=== PATIENT | female | born 2000 | race Caucasian/White ===

== ENCOUNTER 2019-08-26 07:42 | Inpatient (IN) ==
[2019-08-26] MEDS ORDERED: ONDANSETRON INJ 2 MG/ML 2 ML VIAL IV STA (08:13)
[2019-08-26] MEDS ORDERED: SODIUM CHLORIDE 0.9% 1000ML 2,000 ML IV SCH (08:15)
[2019-08-26 09:03] LABS: Hematocrit (blood only) 42.2 % (37-47); Hemoglobin 13.5 g/dL (12.0-16.0); Mean Corpuscular Volume 90.8 fL (80-100); Mean Platelet Volume 9.2 fL (7.4-10.4); Platelet Count 498 K/uL (130-400); RDW Coefficient of Variation 14.4 % (11.5-14.5); RDW Standard Deviation 47.4 fL (36.4-46.3); Red Blood Count 4.65 M/uL (4.2-5.4)
[2019-08-26 09:06] LABS: Base Excess ABG -19.8 mEq/L (-9-1.8); HCO3 ABG 8 mmol/L (19-24); PCO2 ABG 25 mmHg (35-46); PO2 ABG 52 mmHg (80-95)
[2019-08-26 09:10] LABS: Allen Test Pos (Pos); pH ABG 7.12 (7.35-7.45)
[2019-08-26] MEDS ORDERED: INSULIN PROTOCOL GOAL RANGE ONE (09:13)
[2019-08-26] MEDS ORDERED: SEVERE STRESS LEVEL ONE (09:13)
[2019-08-26] MEDS ORDERED: SODIUM CHLORIDE 0.9% 1000ML 1,000 ML IV ONE (09:13)
[2019-08-26 09:19] LABS: D Dimer 410 ug/L FEU (0-500)
[2019-08-26 09:32] LABS: Basophils # (auto) 0.08 K/uL (0-0.2); Basophils % (auto) 0.3 %; Eosinophils # (auto) 0.02 K/uL (0-0.5); Eosinophils % (auto) 0.1 %; Immature Granulocytes # (auto) 1.26 K/uL (0.00-0.02); Immature Granulocytes % (auto) 4.4 %; Lymphocytes # (auto) 2.31 K/uL (1.2-3.4); Lymphocytes % (auto) 8.1 %; Monocytes % (auto) 8.8 %; Neutrophils # (auto) 22.33 K/uL (1.4-6.5); Neutrophils % (auto) 78.3 %
[2019-08-26 09:33] LABS: Albumin Globulin Ratio 0.9 (0.9-2); Albumin Level 3.8 gm/dl (3.4-5.0); BUN Creatinine Ratio 11.8 (10-20); Bilirubin,Total 0.3 mg/dl (0.2-1); Calcium 8.3 mg/dl (8.5-10.1); Creatinine Clr Calc Pharmacy 49.6 ml/min; Est GFR (African American) 54.4; Globulin 4.3 gm/dl (2.5-4.0); Potassium 4.2 mmol/L (3.5-5.1); Total Protein 8.1 gm/dl (6.4-8.2)
--- NOTE | 2019-08-26 10:23 | History & Physical Report ---
Date of Service August 26, 2019 Assessment & Plan (1) DKA (diabetic ketoacidoses): IVF, DKA protocol A1c pending Holding home insulin NPO for now (2) Flank pain: UA pending t/c US vs CTAP depending on US results Renal stone vs pyelo vs ruptured ovarian cyst Ddimer neg, VSS (3) KRYSTIN (acute kidney injury): Related to DKA Monitor (4) Leukocytosis: Likely related to above Monitor (5) Diabetes type 1, controlled: Holding home meds (6) DVT prophylaxis: Ambulation History of Present Illness Primary Care Provider: NO PCP 19 y/o F c/o n/v. Pt states she was out in the sun all day yesterday, swimming, etc. She ended up sun burned and "dehydrated". She states that she felt fine otherwise. She is visiting her boyfriend and they are staying with another couple at [place]. She states that they all went to dinner last night. She ate the same thing as the other girlfriend. The other girl started to have n/v first, but then pt developed the same an hour or so later. The other girl stated that she felt like she had food poisoning and felt better shortly after, however pt continued to have n/v throughout the night into early this AM. She could not keep down any liquids, so she eventually came to the ED for concerns of dehydration. Pt is a DM-I. She did take a bolus of her home insulin [employer]. Pt states she is having R sided "kidney" pain. She states she has hx of kidney stones and thought this might be similar. She has also had ruptured ovarian cysts, but those generally are painful for her in the anterior abd. She states she just had a ruptured cyst in the middle of July, after switching from Nexplanon to OCP due to not being able to have her Nexplanon switched due to COVID restrictions. She did not seek care for this most recent ruptured cyst because she has had them before and this felt the same. She states she still has some L sided lower back pain related to this. She has no increased pain to her back with urination. She had decreased urination yesterday, which she relates to "sun poisoning and being dehydrated". She feels increased pain with deep breaths, but is not short of breath. No chest pain. She states her ruptured cysts occurred prior with OCP use as well. Pt states she feels better s/p IVF and zofran. Still awaiting insulin drip in the ED. Allergies Allergy/AdvReac Type Severity Reaction Status Date / Time No Known Allergies Allergy Unverified 08/26/19 08:14 Home Medications Home Medications Medication Instructions Recorded Confirmed Type ibuprofen 200 mg PO Q6H PRN 08/26/19 08/26/19 History insulin aspart U-100 [Novolog 10 unit SUBCUT TID 08/26/19 08/26/19 History U-100 Insulin aspart] insulin glargine [Lantus U-100 25 unit SUBCUT PM 08/26/19 08/26/19 History Insulin] norethindrone-e.estradiol-iron 1 tab PO PM 08/26/19 08/26/19 History [03/14 (28)] Past Med/Surg History Family History (Updated 08/26/19 @ 10:20 by Susan Moon DO) Denies family history of Clotting disorder Myocardial infarction Stroke Social History Preferred Language: Spanish Communication Ability: Effective [place] Hand Required: No Beliefs That Will Affect Care: None Current Living Situation: Parent Other Information That Helps Us Care for You: No Feels Safe at Home: Yes Safety Concerns: Feels Safe At This Time Smoking Status: Never smoker Hx Alcohol Use: No Hx Substance Use: No Review of Systems Review of Systems: Pertinent positives and negatives reviewed in HPI--all others negative Physical Exam Constitutional: WD/WN, vitals as above Eyes: normal visual sanches by confrontation and + anicteric sclerae Neck: normal visual inspection and trachea midline Respiratory: normal respiratory effort, lungs clear to auscultation Cardiovascular: Rate/Rhythm: regular rate and regular rhythm Gastrointestinal (Abdomen): Inspection/Auscultation: abdomen not distended Percussion/Palpation: abdomen soft; abdomen nontender mild R sided CVA TTP Musculoskeletal: Head/Neck/Chest: normocephalic and head atraumatic negative for edema, peripheral pulses intact Skin: no rashes, warm and dry Neurologic: awake; not confused Speech / Cognition: normal speech Psychiatric: A+Ox3, euthymic affect Results & Data Results & Data ([facility]) Vital Signs (Past 12 Hours) Vital Signs Temp Pulse Pulse Resp BP BP Pulse Ox 08/26/19 08:48 122 H 22 123/79 08/26/19 07:45 36.5 C 136 H 28 H 139/95 94 PG Care Time/CCT Total # of Minutes Spent Total Time Spent with Patient: Total time spent is greater than 50% in coordination of care (as documented) at patient's floor/unit and/or counseling patient: Coding Level of Care Code 69276 Initial Inpt Care Lvl 3 Diagnoses DKA (diabetic ketoacidoses) E11.10 Flank pain R10.9 KRYSTIN (acute kidney injury) N17.9 Leukocytosis D72.829 Diabetes type 1, controlled E10.9 DVT prophylaxis Z29.9
[2019-08-26] MEDS: INSULIN REGULAR 250 UNITS in SODIUM CHLORIDE 0.9% 247.5 ML IV SCH ×2 (10:28→10:39)
[2019-08-26] MEDS ORDERED: NovoLIN-R BOLUS FROM BAG IV ONE ×2 (10:30→10:45)
[2019-08-26] MEDS ORDERED: GLUCAGON FOR INJ 1 MG VIAL IM PRN (10:45)
[2019-08-26] MEDS ORDERED: GLUCOSE 10 TABS/TUBE PO PRN ×2 (10:45→13:34)
[2019-08-26] MEDS ORDERED: CARBOHYDRATES FOR HYPOGLYCEMIA PO PRN ×2 (10:45→13:34)
[2019-08-26] MEDS ORDERED: DEXTROSE 50% 50 ML SYRINGE IV PRN ×2 (10:45→13:34)
[2019-08-26] MEDS ORDERED: GLUCOSE 40% GEL 15 GM TUBE PO PRN ×2 (10:45→13:34)
[2019-08-26 10:54] LABS: Appearance Urine Cloudy (Clear); Bacteria Urine Automated 1+ (Negative); Bilirubin Urine Negative (Negative); Blood Urine 3+ (Negative); Color Urine Yellow; Epithelial Cell Urine Auto >30 /lpf (0-5); Glucose Urine UA 2+ (Negative); Ketones Urine 4+ (Negative); Leukocyte Esterase Urine Negative (Negative); Nitrite Urine Negative (Negative); Protein Urine 2+ (Negative); RBC Urine Automated >30 /hpf (0-4); Specific Gravity Urine 1.021 (1.000-1.030); Urobilinogen Urine Negative (Negative)
[2019-08-26] MEDS ORDERED: DEXTROSE 50% 50 ML SYRINGE IV ONE (11:31)
[2019-08-26] MEDS ORDERED: IOVERSOL 100ml IV PRN (12:37)
[2019-08-26] MEDS ORDERED: INSULIN REGULAR 250 UNITS in SODIUM CHLORIDE 0.9% 247.5 ML IV SCH (12:56)
[2019-08-26] MEDS ORDERED: ACETAMINOPHEN 325 MG TAB PO PRN (12:56)
[2019-08-26] MEDS ORDERED: INSULIN ASPART 100 UNITS/ML 3 ML PEN SC SCH (12:56)
[2019-08-26] MEDS ORDERED: MAGNESIUM HYDROXIDE SUSP 30 ML UDC PO PRN (12:56)
[2019-08-26] MEDS ORDERED: DKA GOAL RANGE 150-250 mg/dl ONE (12:56)
--- NOTE | 2019-08-26 12:59 | CT Scan Report ---
CT OF THE ABDOMEN AND PELVIS WITH CONTRAST CLINICAL HISTORY: DKA, abdominal pain. COMPARISON STUDY: None. TECHNIQUE: Following IV administration of 93 mL of Optiray-320, axial images of the abdomen and pelvi s were obtained from the lung bases to the proximal femurs. Images were reviewed in the axial, sagitt al, and coronal planes. IV contrast was administered without complication. Automated exposure contro l was utilized for the study. A dose lowering technique was utilized adhering to the principles of A PHILIP. CT DOSE: 316.45 mGycm FINDINGS: Imaged portions of the lower chest demonstrate a small amount of pneumomediastinum along th e anterior aspect of the distal esophagus. There is no pneumoperitoneum. No mediastinal fluid is iden tified within visualized portions of the mediastinum. No pleural effusion is present. Note is made of moderate hepatomegaly and fatty infiltration of the liver. No hepatic lesions are present. The splee n, adrenal glands and pancreas are unremarkable. There is no peripancreatic or pericholecystic infilt ration. Hyperdense material within the bilateral collecting systems is noted. This probably reflects extruded contrast. Small calculi could appear similar. There are no ureteral catheter. There is no hy dronephrosis. There is no evidence for acute appendicitis. The caliber and wall thickness of small an d large bowel are normal. There is no ascites. There is no abscess within the abdomen or pelvis to th e ovaries are not enlarged. Visualized skeletal structures are unremarkable. IMPRESSION: 1. Small amount of pneumomediastinum along the distal esophagus. No mediastinal fluid or pleural effu danielle. Statistically, this is due to alveolar rupture. However, a chest CT with oral contrast could be obtained to exclude the possibility of esophageal tear. 2. No acute findings within the abdomen or pelvis. 3. Moderate hepatomegaly and fatty infiltration of the liver. ACT 112: Negative or not required by law. Electronically signed by: Hugo Velázquez M.D. 08/26/2019 12:57 PM
[2019-08-26] MEDS ORDERED: PENDING D5 1/2NS+20mEq KCL IVF SCH (13:00)
[2019-08-26] MEDS ORDERED: PENDING 1/2NSS+20mEq KCL IVF SCH (13:00)
[2019-08-26] MEDS ORDERED: PHARMACY GLYCEMIC MGMT CONSULT PRN (13:02)
[2019-08-26] MEDS ORDERED: GLUCAGON FOR INJ 1 MG VIAL SQ PRN (13:34)
[2019-08-26] MEDS: SODIUM CHLORIDE 0.45 % 1,000 ML IV SCH ×2 (13:42→21:19)
[2019-08-26] MEDS: INSULIN ASPART 100 UNITS/ML 3 ML PEN SC SCH ×3 (13:55→21:20)
[2019-08-26 14:26] LABS: Estimated Average Glucose 243 mg/dl; Hemoglobin A1C 10.1 % (4.5-5.6)
[2019-08-26 15:32] LABS: BUN Creatinine Ratio 11.1 (10-20); Creatinine Clr Calc Pharmacy 72.1 ml/min; Est GFR (African American) 85.6; Est GFR (Non-African American) 73.8; Magnesium 1.9 mg/dl (1.8-2.4); Phosphorus 2.7 mg/dl (2.5-4.9); Potassium 4.6 mmol/L (3.5-5.1)
[2019-08-26] MEDS ORDERED: INSULIN HUMAN REGULAR PER UNIT 10 UNITS in SYRINGE 9.9 ML IV ONE (16:00)
--- NOTE | 2019-08-26 16:17 | Electrocardiogram Report ---
Test Reason : Blood Pressure : / mmHG Vent. Rate : 140 BPM Atrial Rate : 140 BPM P-R Int : 112 ms QRS Dur : 068 ms QT Int : 358 ms P-R-T Axes : 085 089 051 degrees QTc Int : 546 ms Poor data quality, interpretation may be adversely affected Sinus tachycardia Nonspecific T wave abnormality Abnormal ECG No previous ECGs available Confirmed by Cisco Hardin ([id number]) on 08/26/2019 4:17:15 PM Referred By: REFERRED SELF Confirmed By:Cisco Hardin
[2019-08-26 16:24] LABS: Beta-Hydroxybutyrate 62.14 mg/dl (0.2-2.81)
--- NOTE | 2019-08-26 16:59 | Emergency Department Note ---
History of Present Illness General Chief complaint: Vomiting Time Seen by Provider: 08/26/19 08:00 Source: patient and RN notes reviewed Mode of arrival: EMS Limitations: no limitations History of Present Illness Provider complaint: Vomiting, back pain and dehydration. Maximum Pain Intensity: 4 This patient is a 19-year-old female who presents to the emergency department with complaints of right mid back pain, vomiting and dehydration. Patient states she has an insulin-dependent diabetic and began vomiting yesterday. She states she is visiting from out of the area and had dinner with several friends. 1 other friend ordered the same dinner and had some vomiting last evening as well. Patient states she vomited 8-10 times last night but denies any blood in the vomit. She did begin to vomit bile. Patient states her blood sugar was approximately 400 prior to calling the ambulance and gave herself a bolus of insulin. Patient denies any recent fevers, chills, chest pain or shortness of breath. She denies any urinary symptoms. She denies any history of pulmonary embolus but does state she was taken off of the Nexplanon and started a control pill last month. Home Medications Home Medications Medication Instructions Recorded Confirmed Type ibuprofen 200 mg PO Q6H PRN 08/26/19 08/26/19 History insulin aspart U-100 [Novolog 10 unit SUBCUT TID 08/26/19 08/26/19 History U-100 Insulin aspart] insulin glargine [Lantus U-100 25 unit SUBCUT PM 08/26/19 08/26/19 History Insulin] norethindrone-e.estradiol-iron 1 tab PO PM 08/26/19 08/26/19 History [03/14 (28)] Allergies Allergy/AdvReac Type Severity Reaction Status Date / Time No Known Allergies Allergy Unverified 08/26/19 08:14 Past Med/Surg History Family History Denies family history of Clotting disorder Myocardial infarction Stroke Social History Preferred Language: Kazakh Communication Ability: Effective Machine Sole Leveler Required: No Beliefs That Will Affect Care: None Current Living Situation: Parent Other Information That Helps Us Care for You: No Feels Safe at Home: Yes Safety Concerns: Feels Safe At This Time Smoking Status: Never smoker Hx Alcohol Use: No Hx Substance Use: No Review of Systems See HPI for pertinent positives & negatives. and A total of 10 systems reviewed and were otherwise negative Physical Exam Vital Signs Vital Signs - 24 hr 08/26/19 07:45 08/26/19 08:48 08/26/19 10:30 Temperature 36.5 C Temperature Source Oral Pulse Rate 136 H Pulse Rate [Apical] 122 H 105 H Respiratory Rate 28 H 22 16 Blood Pressure 139/95 Blood Pressure [Right Arm] 123/79 126/78 Blood Pressure Mean 109 Blood Pressure Mean [Right Arm] 93 94 Pulse Oximetry 94 Oxygen Delivery Method Room Air Sepsis Recent Fever Within 48 Hours No Sepsis New/Unexplained Change in Mental Status No Sepsis Action Taken by Nursing No Action Required Vital signs reviewed. General: Acutely ill-appearing 19-year-old female, tachycardic but in no distress. HEENT: No scleral icterus or conjunctival injection, dry mucous membranes. Cardiovascular: Tachycardic but regular Pulmonary: Clear to auscultation bilaterally, tachypneic. Abdomen: Soft, generally nontender, nondistended, positive bowel sounds. Musculoskeletal: Atraumatic, no peripheral edema. Mild right CVA tenderness Neurologic: Patient awake alert and oriented x 3 Skin: Warm, dry, no rash Course Administered Medications Acetaminophen (Tylenol) 650 mg PO Q4H PRN PRN Reason: Pain or Fever Stop: 09/25/19 12:55 Last Admin: 08/26/19 15:46 Dose: 650 mg Documented by: [id number] Sodium Chloride (1/2 Nss) 1,000 mls @ 120 mls/hr IV .Q8H20M [facility] Stop: 09/25/19 12:55 Last Admin: 08/26/19 13:42 Dose: 120 mls/hr Documented by: [id number] Insulin Aspart (Novolog Flexpen) 0 units SC ACHS [facility] Stop: 09/25/19 16:29 Last Admin: 08/26/19 13:55 Dose: 10 units Documented by: [id number] Cosigned by: [id number] Ioversol (Optiray 320 100ml) 93 ml IV ONCE PRN PRN Reason: Interaction Checking Stop: 08/30/19 12:36 Last Admin: 08/26/19 12:38 Dose: 93 ml Documented by: [id number] Discontinued Medications Dextrose (Dextrose 50%) 25 ml IV NOW ONE Stop: 08/26/19 11:32 Last Admin: 08/26/19 11:34 Dose: 25 ml Documented by: [id number] Sodium Chloride (Nss 1000ml) 2,000 mls @ 999 mls/hr IV .Q2H1M [facility] Stop: 08/26/19 10:15 Last Infusion: 08/26/19 10:45 Dose: 0 mls/hr Documented by: [id number] Admin: 08/26/19 08:44 Dose: 999 mls/hr Documented by: [id number] Sodium Chloride (Nss 1000ml) 1,000 mls @ 999 mls/hr IV .Q1H1M ONE Stop: 08/26/19 10:13 Last Infusion: 08/26/19 10:36 Dose: 0 mls/hr Documented by: [id number] Infusion: 08/26/19 10:35 Dose: 0 mls/hr Documented by: [id number] Admin: 08/26/19 09:35 Dose: 999 mls/hr Documented by: [id number] Insulin Human Regular 250 (units/ Sodium Chloride) 250 mls @ 5.5 mls/hr IV .Q24H [facility]; Protocol Stop: 09/25/19 09:14 Last Admin: 08/26/19 10:39 Dose: 1.4 units/hr, 1.4 mls/hr Documented by: [id number] Cosigned by: [id number] Titration: 08/26/19 10:39 Dose: 1.4 units/hr, 1.4 mls/hr Documented by: [id number] Cosigned by: [id number] Admin: 08/26/19 10:28 Dose: 1.4 units/hr, 1.4 mls/hr Documented by: [id number] Cosigned by: [id number] Insulin Human Regular 10 units (/ Syringe) 10 mls @ 5 mls/min IV 1600 ONE Stop: 08/26/19 16:01 Last Admin: 08/26/19 16:21 Dose: 5 mls/min Documented by: [id number] Cosigned by: [id number] Insulin Human Regular (Novolin R Bolus From Bag) 5.5 units IV ONE ONE Stop: 08/26/19 10:46 Last Admin: 08/26/19 10:50 Dose: 5.5 units Documented by: [id number] Cosigned by: [id number] Miscellaneous (Insulin Protocol Goal Range) 1 ea N/A ONE ONE Stop: 08/26/19 09:14 Last Admin: 08/26/19 10:30 Dose: Not Given Documented by: [id number] Ondansetron HCl (Zofran) 4 mg IV NOW STA Stop: 08/26/19 08:14 Last Admin: 08/26/19 08:48 Dose: 4 mg Documented by: [id number] Critical Care Time Critical Care Time: Yes (42) I have personally spent greater than 42 minutes of critical care time in the direct management of this patient. This includes bedside care, interpretation of diagnostic studies, and testing, discussion with consultants, patient, and family members, and other required patient management activities. This 42 minutes is in excess of all separately billable procedures. Medical Decision Making Differential Diagnosis Differential diagnosis: Etiologies such as gastroenteritis, DKA, food borne illness, infections, appendicitis, diverticulitis, inflammatory bowel disease, obstruction, GI bleed, biliary pathology, cardiac process, intracranial process, as well as others were entertained. Home Medications Current Medication List: was personally reviewed by me Laboratory Data Attestation: I reviewed the patient's lab results. Result diagrams: 08/26/19 08:44 08/26/19 14:41 Lab Results 08/26/19 08/26/19 08/26/19 Range/Units 08:44 08:44 08:44 WBC 28.50 H (4.8-10.8) K/uL RBC 4.65 (4.2-5.4) M/uL Hgb 13.5 (12.0-16.0) g/dL Hct 42.2 (37-47) % MCV 90.8 (80-100) fL MCH 29.0 (25-34) pg MCHC 32.0 (32-36) g/dL RDW Std Deviation 47.4 H (36.4-46.3) fL RDW Coeff of Jessie 14.4 (11.5-14.5) % Plt Count 498 H (130-400) K/uL MPV 9.2 (7.4-10.4) fL Immature Gran % (Auto) 4.4 % Neut % (Auto) 78.3 % Lymph % (Auto) 8.1 % [place] % (Auto) 8.8 % Eos % (Auto) 0.1 % Baso % (Auto) 0.3 % Neut # (Auto) 22.33 H (1.4-6.5) K/uL Lymph # (Auto) 2.31 (1.2-3.4) K/uL [place] # (Auto) 2.50 H (0.11-0.59) K/uL Eos # (Auto) 0.02 (0-0.5) K/uL Baso # (Auto) 0.08 (0-0.2) K/uL Immature Gran # (Auto) 1.26 H (0.00-0.02) K/uL D-Dimer 410 (0-500) ug/L FEU ABG pH (7.35-7.45) ABG pCO2 (35-46) mmHg ABG pO2 (80-95) mmHg ABG HCO3 (19-24) mmol/L ABG O2 Saturation (90-95) % ABG Base Excess (-9-1.8) mEq/L Jd Test (Pos) Barometric Pressure mm/Hg Oxygen Given Sodium 138 (136-145) mmol/L Potassium 4.2 (3.5-5.1) mmol/L Chloride 109 H (98-107) mmol/L Carbon Dioxide 8 L* (21-32) mmol/L Anion Gap 21.0 H (3-11) BUN 18 (7-18) mg/dl Creatinine 1.57 H (0.6-1.2) mg/dl Est Cr Clr Drug Dosing 49.6 ml/min Est GFR ( Amer) 54.4 Est GFR (Non-Af Amer) 47.0 BUN/Creatinine Ratio 11.8 (10-20) Glucose 271 H (70-99) mg/dl POC Glucose (70-99) mg/dl Estimat Average Glucose mg/dl Hemoglobin A1c (4.5-5.6) % Calcium 8.3 L (8.5-10.1) mg/dl Total Bilirubin 0.3 (0.2-1) mg/dl AST 252 H (15-37) U/L ALT 224 H (12-78) U/L Alkaline Phosphatase 202 H (45-117) U/L Total Protein 8.1 (6.4-8.2) gm/dl Albumin 3.8 (3.4-5.0) gm/dl Globulin 4.3 H (2.5-4.0) gm/dl Albumin/Globulin Ratio 0.9 (0.9-2) Lipase 74 (73-393) U/L 08/26/19 08/26/19 08/26/19 Range/Units 08:44 08:44 09:33 WBC (4.8-10.8) K/uL RBC (4.2-5.4) M/uL Hgb (12.0-16.0) g/dL Hct (37-47) % MCV (80-100) fL MCH (25-34) pg MCHC (32-36) g/dL RDW Std Deviation (36.4-46.3) fL RDW Coeff of Jessie (11.5-14.5) % Plt Count (130-400) K/uL MPV (7.4-10.4) fL Immature Gran % (Auto) % Neut % (Auto) % Lymph % (Auto) % [place] % (Auto) % Eos % (Auto) % Baso % (Auto) % Neut # (Auto) (1.4-6.5) K/uL Lymph # (Auto) (1.2-3.4) K/uL [place] # (Auto) (0.11-0.59) K/uL Eos # (Auto) (0-0.5) K/uL Baso # (Auto) (0-0.2) K/uL Immature Gran # (Auto) (0.00-0.02) K/uL D-Dimer (0-500) ug/L FEU ABG pH 7.12 L* (7.35-7.45) ABG pCO2 25 L (35-46) mmHg ABG pO2 52 L (80-95) mmHg ABG HCO3 8 L (19-24) mmol/L ABG O2 Saturation 79.0 L (90-95) % ABG Base Excess -19.8 L (-9-1.8) mEq/L Jd Test Pos (Pos) Barometric Pressure 730.9 mm/Hg Oxygen Given Room Air Sodium (136-145) mmol/L Potassium (3.5-5.1) mmol/L Chloride (98-107) mmol/L Carbon Dioxide (21-32) mmol/L Anion Gap (3-11) BUN (7-18) mg/dl Creatinine (0.6-1.2) mg/dl Est Cr Clr Drug Dosing ml/min Est GFR ( Amer) Est GFR (Non-Af Amer) BUN/Creatinine Ratio (10-20) Glucose (70-99) mg/dl POC Glucose 216 H (70-99) mg/dl Estimat Average Glucose 243 mg/dl Hemoglobin A1c 10.1 H (4.5-5.6) % Calcium (8.5-10.1) mg/dl Total Bilirubin (0.2-1) mg/dl AST (15-37) U/L ALT (12-78) U/L Alkaline Phosphatase (45-117) U/L Total Protein (6.4-8.2) gm/dl Albumin (3.4-5.0) gm/dl Globulin (2.5-4.0) gm/dl Albumin/Globulin Ratio (0.9-2) Lipase (73-393) U/L 08/26/19 Range/Units 11:01 WBC (4.8-10.8) K/uL RBC (4.2-5.4) M/uL Hgb (12.0-16.0) g/dL Hct (37-47) % MCV (80-100) fL MCH (25-34) pg MCHC (32-36) g/dL RDW Std Deviation (36.4-46.3) fL RDW Coeff of Jessie (11.5-14.5) % Plt Count (130-400) K/uL MPV (7.4-10.4) fL Immature Gran % (Auto) % Neut % (Auto) % Lymph % (Auto) % [place] % (Auto) % Eos % (Auto) % Baso % (Auto) % Neut # (Auto) (1.4-6.5) K/uL Lymph # (Auto) (1.2-3.4) K/uL [place] # (Auto) (0.11-0.59) K/uL Eos # (Auto) (0-0.5) K/uL Baso # (Auto) (0-0.2) K/uL Immature Gran # (Auto) (0.00-0.02) K/uL D-Dimer (0-500) ug/L FEU ABG pH (7.35-7.45) ABG pCO2 (35-46) mmHg ABG pO2 (80-95) mmHg ABG HCO3 (19-24) mmol/L ABG O2 Saturation (90-95) % ABG Base Excess (-9-1.8) mEq/L Jd Test (Pos) Barometric Pressure mm/Hg Oxygen Given Sodium (136-145) mmol/L Potassium (3.5-5.1) mmol/L Chloride (98-107) mmol/L Carbon Dioxide (21-32) mmol/L Anion Gap (3-11) BUN (7-18) mg/dl Creatinine (0.6-1.2) mg/dl Est Cr Clr Drug Dosing ml/min Est GFR ( Amer) Est GFR (Non-Af Amer) BUN/Creatinine Ratio (10-20) Glucose (70-99) mg/dl POC Glucose 101 H (70-99) mg/dl Estimat Average Glucose mg/dl Hemoglobin A1c (4.5-5.6) % Calcium (8.5-10.1) mg/dl Total Bilirubin (0.2-1) mg/dl AST (15-37) U/L ALT (12-78) U/L Alkaline Phosphatase (45-117) U/L Total Protein (6.4-8.2) gm/dl Albumin (3.4-5.0) gm/dl Globulin (2.5-4.0) gm/dl Albumin/Globulin Ratio (0.9-2) Lipase (73-393) U/L Imaging Data Attestation: I personally reviewed and interpreted this imaging study as follows: Radiologist's Impression: CT OF THE ABDOMEN AND PELVIS WITH CONTRAST CLINICAL HISTORY: DKA, abdominal pain. COMPARISON STUDY: None. TECHNIQUE: Following IV administration of 93 mL of Optiray-320, axial images of the abdomen and pelvis were obtained from the lung bases to the proximal femurs. Images were reviewed in the axial, sagittal, and coronal planes. IV contrast was administered without complication. Automated exposure control was utilized for the study. A dose lowering technique was utilized adhering to the principles of ALARA. CT DOSE: 316.45 mGycm FINDINGS: Imaged portions of the lower chest demonstrate a small amount of pneumomediastinum along the anterior aspect of the distal esophagus. There is no pneumoperitoneum. No mediastinal fluid is identified within visualized portions of the mediastinum. No pleural effusion is present. Note is made of moderate hepatomegaly and fatty infiltration of the liver. No hepatic lesions are present. The spleen, adrenal glands and pancreas are unremarkable. There is no peripancreatic or pericholecystic infiltration. Hyperdense material within the bilateral collecting systems is noted. This probably reflects extruded contrast. Small calculi could appear similar. There are no ureteral catheter. There is no hydronephrosis. There is no evidence for acute appendicitis. The caliber and wall thickness of small and large bowel are normal. There is no ascites. There is no abscess within the abdomen or pelvis to the ovaries are not enlarged. Visualized skeletal structures are unremarkable. IMPRESSION: 1. Small amount of pneumomediastinum along the distal esophagus. No mediastinal fluid or pleural effusion. Statistically, this is due to alveolar rupture. However, a chest CT with oral contrast could be obtained to exclude the possibility of esophageal tear. 2. No acute findings within the abdomen or pelvis. 3. Moderate hepatomegaly and fatty infiltration of the liver. ACT 112: Negative or not required by law. Electronically signed by: Hugo Velázquez M.D. 08/26/2019 12:57 PM Dictated: 08/26/19 1245 Transcribed: 08/26/19 1245 ECG Data Attestation: I personally reviewed and interpreted this ECG as follows: Indication: + tachycardia Rate (beats per minute): 140 Rhythm: + sinus tachycardia ECG Intervals/blocks: + Prolonged QT ECG [place]: + Normal ECG ST segments: no T-wave inversions (T wave abnormality, nonspecific) ECG Findings: no PACs and no PVCs Blood Pressure Blood Pressure Findings: Normal blood pressure Blood Pressure Disposition: did not require urgent referral MDM Narrative This patient was evaluated and appeared to be acutely ill. IV access was obtained and laboratory work was drawn. Patient was hydrated with 2 L of IV normal saline solution. Patient's laboratory work reveals a blood sugar of 243 and a WBC of 28.5. Patient's ABG is concerning for pH of 7.12, PCO2 of 25 and bicarb of 8. Patient does have some elevated liver enzymes. D-dimer is negative. Urine reveals 4+ ketones. Patient did receive IV Zofran for her nausea. She was given 1/3 L of IV normal saline solution and an insulin drip was ordered. CT scan of the abdomen pelvis was ordered however there was significant delay in obtaining the study. I did discuss this case with the [facility] service, Dr. Moon, who will evaluate the patient for admission and further management. Patient is aware of the severity of the illness. She will be evaluated for admission and further management. CT scan of the abdomen pelvis was ordered however there was significant delay in obtaining the study. This was performed on the patient's transport to her inpatient room. Results will be deferred to the hospitalist service for management. Impression & Plan DKA (diabetic ketoacidoses), Flank pain Discharge Plan Visit Data *Final* Discharge Date/Time: 08/26/19 12:40 Chief Complaint: Vomiting ED Provider: Pat Tavarez Discharge Problem: DKA (diabetic ketoacidoses), Flank pain Patient Disposition: Admitted As Inpatient Discharge Instructions Interventions: ED Discharge Assessment Last Done: 08/26/19 12:40 Discharge Problem: DKA (diabetic ketoacidoses) Qualifiers: Diabetes mellitus type: type 1 Diabetes mellitus complication detail: without coma Qualified Code(s): E10.10 - Type 1 diabetes mellitus with ketoacidosis without coma
[2019-08-26 21:24] LABS: Calcium 8.9 mg/dl (8.5-10.1); Creatinine Clr Calc Pharmacy 66.6 ml/min; Est GFR (African American) 77.7; Magnesium 1.8 mg/dl (1.8-2.4); Phosphorus 1.8 mg/dl (2.5-4.9); Potassium 3.2 mmol/L (3.5-5.1)
[2019-08-26] MEDS ORDERED: CALCIUM CARBONATE 500 MG CHEWABLE TAB PO PRN (21:50)
[2019-08-27 01:34] LABS: BUN Creatinine Ratio 11.1 (10-20); Calcium 8.5 mg/dl (8.5-10.1); Creatinine Clr Calc Pharmacy 89.6 ml/min; Est GFR (African American) 111.1; Est GFR (Non-African American) 95.9; Magnesium 1.9 mg/dl (1.8-2.4); Potassium 3.7 mmol/L (3.5-5.1)
[2019-08-27] MEDS ORDERED: INSULIN HUMAN REGULAR PER UNIT 5 UNITS in SYRINGE 4.95 ML IV ONE ×2 (04:00→06:30)
[2019-08-27] MEDS: INSULIN ASPART 100 UNITS/ML 3 ML PEN SC ONE ×2 (04:06→04:11)
[2019-08-27] MEDS: SODIUM CHLORIDE 0.45 % 1,000 ML IV SCH (05:37)
[2019-08-27 06:43] LABS: BUN Creatinine Ratio 7.8 (10-20); Calcium 8.6 mg/dl (8.5-10.1); Creatinine Clr Calc Pharmacy 62.3 ml/min; Est GFR (African American) 71.7; Est GFR (Non-African American) 61.9; Potassium 3.6 mmol/L (3.5-5.1)
[2019-08-27 06:48] LABS: Phosphorus 2.3 mg/dl (2.5-4.9)
[2019-08-27] MEDS: INSULIN ASPART 100 UNITS/ML 3 ML PEN SC SCH ×4 (08:03→21:56)
[2019-08-27] MEDS ORDERED: DKA GOAL RANGE 150-250 mg/dl ONE (08:34)
[2019-08-27] MEDS ORDERED: DC ALL PREVIOUSLY ORDERED DIABETES MEDS ONE (08:34)
[2019-08-27] MEDS ORDERED: PHARMACY GLYCEMIC MGMT CONSULT PRN (08:47)
[2019-08-27 09:07] LABS: Basophils # (auto) 0.04 K/uL (0-0.2); Basophils % (auto) 0.4 %; Eosinophils # (auto) 0.07 K/uL (0-0.5); Eosinophils % (auto) 0.6 %; Hemoglobin 11.7 g/dL (12.0-16.0); Immature Granulocytes # (auto) 0.11 K/uL (0.00-0.02); Lymphocytes % (auto) 19.6 %; Mean Corpuscular Hemoglobin 28.2 pg (25-34); Mean Corpuscular Hgb Conc 31.6 g/dL (32-36); Mean Corpuscular Volume 89.2 fL (80-100); Mean Platelet Volume 8.8 fL (7.4-10.4); Monocytes # (auto) 0.47 K/uL (0.11-0.59); Monocytes % (auto) 4.2 %; Neutrophils # (auto) 8.34 K/uL (1.4-6.5); Neutrophils % (auto) 74.2 %; Platelet Count 361 K/uL (130-400); RDW Coefficient of Variation 14.2 % (11.5-14.5); RDW Standard Deviation 46.6 fL (36.4-46.3); Red Blood Count 4.15 M/uL (4.2-5.4); White Blood Count 11.23 K/uL (4.8-10.8)
[2019-08-27] MEDS: NSS + 20MEQ KCL 20 MEQ/1,000 ML BAG IV SCH ×2 (09:09→15:29)
[2019-08-27 09:27] LABS: BUN Creatinine Ratio 6.5 (10-20); Calcium 8.5 mg/dl (8.5-10.1); Creatinine Clr Calc Pharmacy 58.6 ml/min; Est GFR (African American) 66.5; Est GFR (Non-African American) 57.4; Magnesium 1.7 mg/dl (1.8-2.4); Phosphorus 1.5 mg/dl (2.5-4.9)
[2019-08-27 09:28] LABS: Alanine Aminotransferase 164 U/L (12-78); Alkaline Phosphatase 150 U/L (45-117); Aspartate Aminotransferase 195 U/L (15-37); Bilirubin Direct < 0.1 mg/dl (0-0.2); Bilirubin,Total 0.6 mg/dl (0.2-1); Total Protein 6.1 gm/dl (6.4-8.2)
[2019-08-27] MEDS ORDERED: POTASSIUM PHOS 3 MMOL/1 ML INFUSION IV STA (09:35)
[2019-08-27] MEDS ORDERED: POTASSIUM CHLORIDE 20 MEQ TABCR PO ONE (09:45)
[2019-08-27 09:51] LABS: Beta-Hydroxybutyrate 41.9 mg/dl (0.2-2.81)
--- NOTE | 2019-08-27 09:51 | CT Scan Report ---
CT OF THE CHEST WITH ORAL CONTRAST CLINICAL HISTORY: Pneumomediastinum. COMPARISON STUDY: CT of the abdomen and pelvis August 26, 2019. CT DOSE: 341.05 mGy.cm TECHNIQUE: Axial images of the chest were obtained without IV contrast. Patient ingested water-solub le oral contrast immediately prior to scanning. A second scan was performed for improved opacificatio n of the esophagus appears Images were reviewed in the axial, sagittal, and coronal planes. IV contra st was not administered for this examination. Automated exposure control was utilized for the study. A dose lowering technique was utilized adhering to the principles of ALARA. FINDINGS: Opacification of the esophagus is excellent. No extraluminal oral contrast within the medi astinum is noted. No esophageal wall thickening is noted. There is no mediastinal infiltration. Moder ate pneumomediastinum is noted. The amount of pneumomediastinum within the lower mediastinum is simil ar to abdominal CT of August 26, 2019. There is no pleural effusion. No pneumothorax is present. Size of the heart is normal. There is no pericardial effusion. There is no consolidation to suggest pneumoni a. No thoracic lymphadenopathy is present. Upper abdomen is unremarkable. IMPRESSION: Moderate pneumomediastinum. No oral contrast extravasation to suggest esophageal tear. N o pleural effusion. No mediastinal fluid or infiltration. ACT 112: Negative or not required by law. Electronically signed by: Hugo Velázquez M.D. 08/27/2019 9:50 AM
[2019-08-27] MEDS: INSULIN REGULAR 250 UNITS in SODIUM CHLORIDE 0.9% 247.5 ML IV SCH (09:56)
[2019-08-27] MEDS ORDERED: POTASSIUM PHOSPHATE 21 MMOL in SODIUM CHLORIDE 0.9% 500 ML IV ONE (10:00)
--- NOTE | 2019-08-27 10:03 | Hospitalist Progress Note ---
Date of Service August 27, 2019 Assessment & Plan (1) DKA (diabetic ketoacidoses): This am still with acidosis, elevated anion gap, etc. This is despite 24 hours of attempts at correction with combination of IV/SC insulin. Hold all SC insulin. Transition over to IV regular insulin infusion. Recheck BMP, mag, phos, pH later this afternoon and this evening. Hopefully can stop drip in am and revert back to SC insulin regimen. Exact cause of DKA uncertain. Marked leukocytosis at admission -- viral process given the abnormal LFTs? Other? Urine cx still pending. Leukocytosis improving without antibiotics. (2) Uncontrolled type 1 diabetes mellitus: A1c 10.1%. DM and nutrition counseling. (3) KRYSTIN (acute kidney injury): 2nd to DKA - resolving. Cont supportive care. Serial BMPs. (4) Pneumomediastinum: Suspect due to vomiting/retching. Fortunately CT chest with PO contrast today did NOT show esophageal tear/rupture. No symptoms of such either. Tolerating diet. PO protonix. O2 sats and pulmonary status stable. GI consult in am for their opinion. If any fever spike this would be concerning for contamination from esophageal leak and would need emergent transfer to tertiary care center. (5) Leukocytosis: reactive to DKA? viral? other? improving / nearly normal today. (6) Abnormal LFTs: etiology?? acute liver injury in setting of DKA? acute HepA or B? COVID? other?? check Hepatitis profile am recheck LFTs am (7) GERD (gastroesophageal reflux disease): start PPI (8) Hypomagnesemia: replaced improved (9) Hypokalemia: replace IV/PO (10) Hypophosphatemia: replace IV/PO (11) DVT prophylaxis: given OCP use and recent travel - lovenox daily Admission and Anticipated Discharge Date Admission Date: August 26, 2019 Subjective patient denies any dyspnea or pleuritic chest pain. had mild dyspnea last evening but now resolved. no cough. she overall feels MUCH better in comparison to admission. she was able to tolerate solid foods for breakfast this am without nausea/emesis. denies diarrhea. she and her boyfriend were visiting another couple in [place] when she went into DKA. denies excessive etoh intake this week. does not drink etoh regularly. lives in [place]; works FT in a dept store. no obvious COVID exposure. no recent loss of taste or smell. has never had DKA before. dx at age 9 with T1DM. Review of Systems Constitutional: no fever and no chills Ear, Nose, Mouth, Throat: no nasal congestion, no nasal discharge and no sore throat Respiratory: no cough, no dyspnea and no pain on inspiration Cardiovascular: no chest pain Gastrointestinal: no abdominal pain, no nausea, no vomiting and no diarrhea/loose stools Genitourinary: no dysuria Musculoskeletal: no myalgia and no body aches Integumentary: no rash Physical Exam 2 Constitutional: well developed and well nourished; no acute distress and no altered mental status ENMT: external ear and nose normal, oropharynx normal Respiratory: normal respiratory effort, lungs clear to auscultation Cardiovascular: Rate/Rhythm: regular rhythm and + tachycardic Heart Sounds: normal S1 and normal S2; no murmur Vessels: posterior tibial pulses present and dorsalis pedis pulses present; no JVD Extremities: no edema Gastrointestinal (Abdomen): normal bowel sounds, soft, nontender, no hepatosplenomegaly Skin: no rashes, warm and dry Psychiatric: A+Ox3, euthymic affect Results & Data Results & Data ([facility]) Vital Signs (Past 12 Hours) Vital Signs Temp Pulse Pulse Resp BP Pulse Ox 08/27/19 07:05 37.3 C 112 H 18 123/63 97 08/27/19 03:28 37.0 C 102 H 17 109/65 99 08/26/19 23:17 37.0 C 92 H 17 113/70 99 08/26/19 23:13 89 Laboratory Results Laboratory Results - last 24 hr 08/26/19 08/26/19 08/26/19 08:44 11:01 11:30 WBC RBC Hgb Hct MCV MCH MCHC RDW Std Deviation RDW Coeff of Jessie Plt Count MPV Immature Gran % (Auto) Neut % (Auto) Lymph % (Auto) Carroll % (Auto) Eos % (Auto) Baso % (Auto) Neut # (Auto) Lymph # (Auto) [place] # (Auto) Eos # (Auto) Baso # (Auto) Immature Gran # (Auto) VBG pH Sodium Potassium Chloride Carbon Dioxide Anion Gap BUN Creatinine Est Cr Clr Drug Dosing Est GFR ( Amer) Est GFR (Non-Af Amer) BUN/Creatinine Ratio Glucose POC Glucose 101 H 66 L* Estimat Average Glucose 243 Hemoglobin A1c 10.1 H Calcium Phosphorus Magnesium Total Bilirubin Direct Bilirubin AST ALT Alkaline Phosphatase Total Creatine Kinase Total Protein Albumin Beta-Hydroxybutyric Acd Urine Color Urine Appearance Urine pH Ur Specific [place] Urine Protein Urine Glucose (UA) Urine Ketones Urine Blood Urine Nitrite Urine Bilirubin Urine Urobilinogen Ur Leukocyte Esterase Urine WBC (Auto) Urine RBC (Auto) U Hyaline Cast (Auto) U Epithel Cells (Auto) Urine Bacteria (Auto) Ur Renal Epithelial Cell Granular Casts POC Ur Test 08/26/19 08/26/19 08/26/19 11:56 13:06 14:41 WBC RBC Hgb Hct MCV MCH MCHC RDW Std Deviation RDW Coeff of Jessie Plt Count MPV Immature Gran % (Auto) Neut % (Auto) Lymph % (Auto) Carroll % (Auto) Eos % (Auto) Baso % (Auto) Neut # (Auto) Lymph # (Auto) Carroll # (Auto) Eos # (Auto) Baso # (Auto) Immature Gran # (Auto) VBG pH Sodium 132 L Potassium 4.6 Chloride 106 Carbon Dioxide 13 L Anion Gap 13.0 H BUN 12 Creatinine 1.08 Est Cr Clr Drug Dosing 72.1 Est GFR ( Amer) 85.6 Est GFR (Non-Af Amer) 73.8 BUN/Creatinine Ratio 11.1 Glucose 415 H* POC Glucose 119 H 270 H Estimat Average Glucose Hemoglobin A1c Calcium 8.0 L Phosphorus 2.7 Magnesium 1.9 Total Bilirubin Direct Bilirubin AST ALT Alkaline Phosphatase Total Creatine Kinase Total Protein Albumin Beta-Hydroxybutyric Acd 62.14 H Urine Color Urine Appearance Urine pH Ur Specific [place] Urine Protein Urine Glucose (UA) Urine Ketones Urine Blood Urine Nitrite Urine Bilirubin Urine Urobilinogen Ur Leukocyte Esterase Urine WBC (Auto) Urine RBC (Auto) U Hyaline Cast (Auto) U Epithel Cells (Auto) Urine Bacteria (Auto) Ur Renal Epithelial Cell Granular Casts POC Ur Test 08/26/19 08/26/19 08/26/19 14:41 15:34 15:35 WBC RBC Hgb Hct MCV MCH MCHC RDW Std Deviation RDW Coeff of Jessie Plt Count MPV Immature Gran % (Auto) Neut % (Auto) Lymph % (Auto) Carroll % (Auto) Eos % (Auto) Baso % (Auto) Neut # (Auto) Lymph # (Auto) [place] # (Auto) Eos # (Auto) Baso # (Auto) Immature Gran # (Auto) VBG pH 7.28 L Sodium Potassium Chloride Carbon Dioxide Anion Gap BUN Creatinine Est Cr Clr Drug Dosing Est GFR ( Amer) Est GFR (Non-Af Amer) BUN/Creatinine Ratio Glucose POC Glucose 415 H* 533 H* Estimat Average Glucose Hemoglobin A1c Calcium Phosphorus Magnesium Total Bilirubin Direct Bilirubin AST ALT Alkaline Phosphatase Total Creatine Kinase Total Protein Albumin Beta-Hydroxybutyric Acd Urine Color Urine Appearance Urine pH Ur Specific [place] Urine Protein Urine Glucose (UA) Urine Ketones Urine Blood Urine Nitrite Urine Bilirubin Urine Urobilinogen Ur Leukocyte Esterase Urine WBC (Auto) Urine RBC (Auto) U Hyaline Cast (Auto) U Epithel Cells (Auto) Urine Bacteria (Auto) Ur Renal Epithelial Cell Granular Casts POC Ur Test 08/26/19 08/26/19 08/26/19 16:59 19:09 20:50 WBC RBC Hgb Hct MCV MCH MCHC RDW Std Deviation RDW Coeff of Jessie Plt Count MPV Immature Gran % (Auto) Neut % (Auto) Lymph % (Auto) Carroll % (Auto) Eos % (Auto) Baso % (Auto) Neut # (Auto) Lymph # (Auto) [place] # (Auto) Eos # (Auto) Baso # (Auto) Immature Gran # (Auto) VBG pH Sodium 136 Potassium 3.2 L D Chloride 110 H Carbon Dioxide 17 L Anion Gap 9.0 BUN 11 Creatinine 1.17 Est Cr Clr Drug Dosing 66.6 Est GFR ( Amer) 77.7 Est GFR (Non-Af Amer) 67.0 BUN/Creatinine Ratio 9.0 L Glucose 62 L POC Glucose 359 H* 99 Estimat Average Glucose Hemoglobin A1c Calcium 8.9 Phosphorus 1.8 L Magnesium 1.8 Total Bilirubin Direct Bilirubin AST ALT Alkaline Phosphatase Total Creatine Kinase Total Protein Albumin Beta-Hydroxybutyric Acd Urine Color Urine Appearance Urine pH Ur Specific [place] Urine Protein Urine Glucose (UA) Urine Ketones Urine Blood Urine Nitrite Urine Bilirubin Urine Urobilinogen Ur Leukocyte Esterase Urine WBC (Auto) Urine RBC (Auto) U Hyaline Cast (Auto) U Epithel Cells (Auto) Urine Bacteria (Auto) Ur Renal Epithelial Cell Granular Casts POC Ur Test 08/26/19 08/26/19 08/26/19 20:50 21:01 21:18 WBC RBC Hgb Hct MCV MCH MCHC RDW Std Deviation RDW Coeff of Jessie Plt Count MPV Immature Gran % (Auto) Neut % (Auto) Lymph % (Auto) Carroll % (Auto) Eos % (Auto) Baso % (Auto) Neut # (Auto) Lymph # (Auto) [place] # (Auto) Eos # (Auto) Baso # (Auto) Immature Gran # (Auto) VBG pH 7.37 Sodium Potassium Chloride Carbon Dioxide Anion Gap BUN Creatinine Est Cr Clr Drug Dosing Est GFR ( Amer) Est GFR (Non-Af Amer) BUN/Creatinine Ratio Glucose POC Glucose 61 L* 65 L* Estimat Average Glucose Hemoglobin A1c Calcium Phosphorus Magnesium Total Bilirubin Direct Bilirubin AST ALT Alkaline Phosphatase Total Creatine Kinase Total Protein Albumin Beta-Hydroxybutyric Acd Urine Color Urine Appearance Urine pH Ur Specific [place] Urine Protein Urine Glucose (UA) Urine Ketones Urine Blood Urine Nitrite Urine Bilirubin Urine Urobilinogen Ur Leukocyte Esterase Urine WBC (Auto) Urine RBC (Auto) U Hyaline Cast (Auto) U Epithel Cells (Auto) Urine Bacteria (Auto) Ur Renal Epithelial Cell Granular Casts POC Ur Test 08/26/19 08/26/19 08/26/19 21:30 23:16 Unknown WBC RBC Hgb Hct MCV MCH MCHC RDW Std Deviation RDW Coeff of Jessie Plt Count MPV Immature Gran % (Auto) Neut % (Auto) Lymph % (Auto) Carroll % (Auto) Eos % (Auto) Baso % (Auto) Neut # (Auto) Lymph # (Auto) [place] # (Auto) Eos # (Auto) Baso # (Auto) Immature Gran # (Auto) VBG pH Sodium Potassium Chloride Carbon Dioxide Anion Gap BUN Creatinine Est Cr Clr Drug Dosing Est GFR ( Amer) Est GFR (Non-Af Amer) BUN/Creatinine Ratio Glucose POC Glucose 77 95 Estimat Average Glucose Hemoglobin A1c Calcium Phosphorus Magnesium Total Bilirubin Direct Bilirubin AST ALT Alkaline Phosphatase Total Creatine Kinase Total Protein Albumin Beta-Hydroxybutyric Acd Urine Color Urine Appearance Urine pH Ur Specific [place] Urine Protein Urine Glucose (UA) Urine Ketones Urine Blood Urine Nitrite Urine Bilirubin Urine Urobilinogen Ur Leukocyte Esterase Urine WBC (Auto) Urine RBC (Auto) U Hyaline Cast (Auto) U Epithel Cells (Auto) Urine Bacteria (Auto) Ur Renal Epithelial Cell Granular Casts POC Ur Test NEG 08/26/19 08/27/19 08/27/19 Unknown 00:55 00:55 WBC RBC Hgb Hct MCV MCH MCHC RDW Std Deviation RDW Coeff of Jessie Plt Count MPV Immature Gran % (Auto) Neut % (Auto) Lymph % (Auto) Carroll % (Auto) Eos % (Auto) Baso % (Auto) Neut # (Auto) Lymph # (Auto) [place] # (Auto) Eos # (Auto) Baso # (Auto) Immature Gran # (Auto) VBG pH 7.35 L Sodium 137 Potassium 3.7 D Chloride 108 H Carbon Dioxide 17 L Anion Gap 12.0 H BUN 10 Creatinine 0.87 D Est Cr Clr Drug Dosing 89.6 Est GFR ( Amer) 111.1 Est GFR (Non-Af Amer) 95.9 BUN/Creatinine Ratio 11.1 Glucose 214 H POC Glucose Estimat Average Glucose Hemoglobin A1c Calcium 8.5 Phosphorus 3.0 D Magnesium 1.9 Total Bilirubin Direct Bilirubin AST ALT Alkaline Phosphatase Total Creatine Kinase Total Protein Albumin Beta-Hydroxybutyric Acd Urine Color Yellow Urine Appearance Cloudy A Urine pH 5.0 Ur Specific [place] 1.021 Urine Protein 2+ H Urine Glucose (UA) 2+ H Urine Ketones 4+ H Urine Blood 3+ H Urine Nitrite Negative Urine Bilirubin Negative Urine Urobilinogen Negative Ur Leukocyte Esterase Negative Urine WBC (Auto) 10-30 H Urine RBC (Auto) >30 H U Hyaline Cast (Auto) 1-5 U Epithel Cells (Auto) >30 H Urine Bacteria (Auto) 1+ H Ur Renal Epithelial Cell Not Reportable Granular Casts 10-20 H POC Ur Test 08/27/19 08/27/19 08/27/19 01:10 03:21 04:52 WBC RBC Hgb Hct MCV MCH MCHC RDW Std Deviation RDW Coeff of Jessie Plt Count MPV Immature Gran % (Auto) Neut % (Auto) Lymph % (Auto) Carroll % (Auto) Eos % (Auto) Baso % (Auto) Neut # (Auto) Lymph # (Auto) [place] # (Auto) Eos # (Auto) Baso # (Auto) Immature Gran # (Auto) VBG pH Sodium Potassium Chloride Carbon Dioxide Anion Gap BUN Creatinine Est Cr Clr Drug Dosing Est GFR ( Amer) Est GFR (Non-Af Amer) BUN/Creatinine Ratio Glucose POC Glucose 234 H 406 H* 335 H* Estimat Average Glucose Hemoglobin A1c Calcium Phosphorus Magnesium Total Bilirubin Direct Bilirubin AST ALT Alkaline Phosphatase Total Creatine Kinase Total Protein Albumin Beta-Hydroxybutyric Acd Urine Color Urine Appearance Urine pH Ur Specific [place] Urine Protein Urine Glucose (UA) Urine Ketones Urine Blood Urine Nitrite Urine Bilirubin Urine Urobilinogen Ur Leukocyte Esterase Urine WBC (Auto) Urine RBC (Auto) U Hyaline Cast (Auto) U Epithel Cells (Auto) Urine Bacteria (Auto) Ur Renal Epithelial Cell Granular Casts POC Ur Test 08/27/19 08/27/19 08/27/19 05:25 05:25 06:03 WBC RBC Hgb Hct MCV MCH MCHC RDW Std Deviation RDW Coeff of Jessie Plt Count MPV Immature Gran % (Auto) Neut % (Auto) Lymph % (Auto) Carroll % (Auto) Eos % (Auto) Baso % (Auto) Neut # (Auto) Lymph # (Auto) [place] # (Auto) Eos # (Auto) Baso # (Auto) Immature Gran # (Auto) VBG pH 7.26 L Sodium 136 Potassium 3.6 Chloride 108 H Carbon Dioxide 11 L Anion Gap 17.0 H BUN 10 Creatinine 1.25 H D Est Cr Clr Drug Dosing 62.3 Est GFR ( Amer) 71.7 Est GFR (Non-Af Amer) 61.9 BUN/Creatinine Ratio 7.8 L Glucose 268 H POC Glucose 301 H* Estimat Average Glucose Hemoglobin A1c Calcium 8.6 Phosphorus 2.3 L Magnesium 2.0 Total Bilirubin Direct Bilirubin AST ALT Alkaline Phosphatase Total Creatine Kinase Total Protein Albumin Beta-Hydroxybutyric Acd Urine Color Urine Appearance Urine pH Ur Specific [place] Urine Protein Urine Glucose (UA) Urine Ketones Urine Blood Urine Nitrite Urine Bilirubin Urine Urobilinogen Ur Leukocyte Esterase Urine WBC (Auto) Urine RBC (Auto) U Hyaline Cast (Auto) U Epithel Cells (Auto) Urine Bacteria (Auto) Ur Renal Epithelial Cell Granular Casts POC Ur Test 08/27/19 08/27/19 08/27/19 07:03 07:39 08:39 WBC RBC Hgb Hct MCV MCH MCHC RDW Std Deviation RDW Coeff of Jessie Plt Count MPV Immature Gran % (Auto) Neut % (Auto) Lymph % (Auto) [place] % (Auto) Eos % (Auto) Baso % (Auto) Neut # (Auto) Lymph # (Auto) [place] # (Auto) Eos # (Auto) Baso # (Auto) Immature Gran # (Auto) VBG pH Sodium 134 L Potassium 3.0 L D Chloride 104 Carbon Dioxide 10 L Anion Gap 20.0 H BUN 9 Creatinine 1.33 H Est Cr Clr Drug Dosing 58.6 Est GFR ( Amer) 66.5 Est GFR (Non-Af Amer) 57.4 BUN/Creatinine Ratio 6.5 L Glucose 353 H* POC Glucose 441 H* 352 H* Estimat Average Glucose Hemoglobin A1c Calcium 8.5 Phosphorus 1.5 L* Magnesium 1.7 L Total Bilirubin Direct Bilirubin AST ALT Alkaline Phosphatase Total Creatine Kinase 105 Total Protein Albumin Beta-Hydroxybutyric Acd 41.90 H Urine Color Urine Appearance Urine pH Ur Specific [place] Urine Protein Urine Glucose (UA) Urine Ketones Urine Blood Urine Nitrite Urine Bilirubin Urine Urobilinogen Ur Leukocyte Esterase Urine WBC (Auto) Urine RBC (Auto) U Hyaline Cast (Auto) U Epithel Cells (Auto) Urine Bacteria (Auto) Ur Renal Epithelial Cell Granular Casts POC Ur Test 08/27/19 08/27/19 08/27/19 08:39 08:39 08:39 WBC 11.23 H D RBC 4.15 L Hgb 11.7 L Hct 37.0 MCV 89.2 MCH 28.2 MCHC 31.6 L RDW Std Deviation 46.6 H RDW Coeff of Jessie 14.2 Plt Count 361 MPV 8.8 Immature Gran % (Auto) 1.0 Neut % (Auto) 74.2 Lymph % (Auto) 19.6 Carroll % (Auto) 4.2 Eos % (Auto) 0.6 Baso % (Auto) 0.4 Neut # (Auto) 8.34 H Lymph # (Auto) 2.20 [place] # (Auto) 0.47 Eos # (Auto) 0.07 Baso # (Auto) 0.04 Immature Gran # (Auto) 0.11 H VBG pH 7.30 L Sodium Potassium Chloride Carbon Dioxide Anion Gap BUN Creatinine Est Cr Clr Drug Dosing Est GFR ( Amer) Est GFR (Non-Af Amer) BUN/Creatinine Ratio Glucose POC Glucose Estimat Average Glucose Hemoglobin A1c Calcium Phosphorus Magnesium Total Bilirubin 0.6 Direct Bilirubin < 0.1 AST 195 H ALT 164 H Alkaline Phosphatase 150 H Total Creatine Kinase Total Protein 6.1 L D Albumin 3.0 L Beta-Hydroxybutyric Acd Urine Color Urine Appearance Urine pH Ur Specific [place] Urine Protein Urine Glucose (UA) Urine Ketones Urine Blood Urine Nitrite Urine Bilirubin Urine Urobilinogen Ur Leukocyte Esterase Urine WBC (Auto) Urine RBC (Auto) U Hyaline Cast (Auto) U Epithel Cells (Auto) Urine Bacteria (Auto) Ur Renal Epithelial Cell Granular Casts POC Ur Test PG Care Time/CCT Total # of Minutes Spent Total Time Spent with Patient: Total time spent is greater than 50% in coordination of care (as documented) at patient's floor/unit and/or counseling patient: Coding Level of Care Code 06327 Subseq Hosp Care Lvl 3 Diagnoses DKA (diabetic ketoacidoses) E10.10 Diabetes mellitus complication detail: without coma Diabetes mellitus type: type 1 Uncontrolled type 1 diabetes mellitus E10.65 Glycemic state: with hyperglycemia KRYSTIN (acute kidney injury) N17.9 Pneumomediastinum J98.2 Leukocytosis D72.829 Leukocytosis type: unspecified Abnormal LFTs R94.5 GERD (gastroesophageal reflux disease) K21.9 Esophagitis presence: esophagitis presence not specified Hypomagnesemia E83.42 Hypokalemia E87.6 Hypophosphatemia E83.39 DVT prophylaxis Z29.9 (1) DKA (diabetic ketoacidoses) Diabetes mellitus complication detail: without coma Diabetes mellitus type: type 1 Qualified Code(s): E10.10 - Type 1 diabetes mellitus with ketoacidosis without coma (2) Leukocytosis Leukocytosis type: unspecified Qualified Code(s): D72.829 - Elevated white blood cell count, unspecified (3) GERD (gastroesophageal reflux disease) Esophagitis presence: esophagitis presence not specified Qualified Code(s): K21.9 - Gastro-esophageal reflux disease without esophagitis (4) Uncontrolled type 1 diabetes mellitus Glycemic state: with hyperglycemia Qualified Code(s): E10.65 - Type 1 diabetes mellitus with hyperglycemia
[2019-08-27] MEDS: MAGNESIUM SULFATE / D5W 1 GM/100 ML BAG IV SCH ×2 (10:04→11:18)
[2019-08-27] MEDS: PANTOprazole 40 MG TAB PO SCH (11:18)
[2019-08-27] MEDS ORDERED: POTASSIUM CHLORIDE 20 MEQ TABCR PO SCH (14:00)
--- NOTE | 2019-08-27 14:50 | Pharmacy Report ---
Glycemic Control Consultation - Date of Service August 27, 2019 - Scope Scope: Glycemic Pharmacist consulted for glycemic control and to write orders per [facility] inpatient glycemic control protocol. - Objective Weight: 55 kg Accreis BSG (last 24hrs): 08/26/19 08/26/19 08/26/19 14:41 15:34 15:35 Glucose 415 H* POC Glucose 415 H* 533 H* 08/26/19 08/26/19 08/26/19 16:59 19:09 20:50 Glucose 62 L POC Glucose 359 H* 99 08/26/19 08/26/19 08/26/19 21:01 21:18 21:30 Glucose POC Glucose 61 L* 65 L* 77 08/26/19 08/27/19 08/27/19 23:16 00:55 01:10 Glucose 214 H POC Glucose 95 234 H 08/27/19 08/27/19 08/27/19 03:21 04:52 05:25 Glucose 268 H POC Glucose 406 H* 335 H* 08/27/19 08/27/19 08/27/19 06:03 07:03 07:39 Glucose POC Glucose 301 H* 441 H* 352 H* 08/27/19 08/27/19 08/27/19 08:39 11:03 11:26 Glucose 353 H* POC Glucose 129 H 111 H 08/27/19 08/27/19 08/27/19 11:42 12:02 12:16 Glucose POC Glucose 134 H 138 H 162 H 08/27/19 08/27/19 13:12 14:15 Glucose POC Glucose 204 H 135 H Laboratory Data (last 24hrs): 08/26/19 08/26/19 08/27/19 14:41 20:50 00:55 Potassium 4.6 3.2 L D 3.7 D Carbon Dioxide 13 L 17 L 17 L Anion Gap 13.0 H 9.0 12.0 H Creatinine 1.08 1.17 0.87 D Est Cr Clr Drug Dosing 72.1 66.6 89.6 Beta-Hydroxybutyric Acd 62.14 H 08/27/19 08/27/19 05:25 08:39 Potassium 3.6 3.0 L D Carbon Dioxide 11 L 10 L Anion Gap 17.0 H 20.0 H Creatinine 1.25 H D 1.33 H Est Cr Clr Drug Dosing 62.3 58.6 Beta-Hydroxybutyric Acd 41.90 H HbA1c: Hemoglobin A1c 10.1 % (4.5-5.6) H 08/26/19 08:44 - Recent Pertinent Medications Outpatient Anti-diabetic Regimen: * Lantus 25 units SC qpm * Novolog 10 units TIDM * A1c = 10.1 % (08/26/19) - Assessment & Plan Assessment & Plan: ASSESSMENT: * LUKAS is a 19 year old female with DKA * Pharmacy initially consulted on 08/25 - consult was subsequently discontinued and managed with SC Novolog by hospitalist yesterday * Pharmacy consulted again on 08/26 * This morning, pertinent labs included: * Potassium 3.0 mmol/L - repleted with PO and IV potassium * Phosphorus 2.3 mg/dL - repleted with IV phosphorus * Carbon dioxide 10 mmol/L * Anion gap: 17 * Beta-hydroxybutyric acid 41.9 mg/dL * BSGs have been volatile while managed with SC insulin, so insulin gtt was re- initiated by today's hospitalist * Patient appears to be quite insulin-sensitive and has had several lows following large doses of Novolog/IV insulin * Insulin gtt appears to be the safest way to manage this patient PLAN FOR INPATIENT GLYCEMIC CONTROL: * Starting IV insulin infusion * Goal Range 150 - 250 mg/dl * In the critical care setting, continuous IV insulin infusion has been shown to be the best method for achieving glycemic targets. * Basal insulin * Hold for now - will consider insulin gtt transition tomorrow if patient stable * Bolus insulin * NovoLog per scale ACHS - insulin infusion calculator * Please note that the plan above was derived based on current level of insulin resistance and hospital stress. These recommendations are appropriate for inpatient admission only. Plan of care upon discharge will need to be reassessed to avoid potential outpatient hypo/hyperglycemia. Thank you.
[2019-08-27 15:36] LABS: BUN Creatinine Ratio 7.2 (10-20); Calcium 8.2 mg/dl (8.5-10.1); Creatinine Clr Calc Pharmacy 81.2 ml/min; Est GFR (African American) 98.7; Est GFR (Non-African American) 85.1; Magnesium 2.2 mg/dl (1.8-2.4); Phosphorus 1.9 mg/dl (2.5-4.9); Potassium 4.5 mmol/L (3.5-5.1)
[2019-08-27] MEDS: PATIENT'S OWN ORAL CONTRACEPTIVE PO SCH (21:45)
[2019-08-27] MEDS: ENOXAPARIN INJ 40 MG/0.4 ML SYR SQ SCH (21:55)
[2019-08-27] MEDS: POT PHOSPHATE MONOBASIC W/ SOD TAB PO SCH (21:57)
--- NOTE | 2019-08-27 22:29 | Gastrointestinal Consultation ---
Date of Consultation August 27, 2019 Assessment & Plan (1) Diabetes type 1, controlled: (2) DKA (diabetic ketoacidoses): (3) Pneumomediastinum: (4) GERD (gastroesophageal reflux disease): (5) Abnormal LFTs: Recommend continued supportive care with aggressive fluid hydration and normalization of blood glucose levels. Continued supportive care as per primary team Continue PPI therapy once daily She should have repeat LFT's in the AM and weekly until her liver panel normalizes per her PCP She should see both nutrition and endocrinology due to poorly controlled blood glucose levels both acute and chronic, which can lead to delayed GI motility. No plans for endoscopic workup at present. If patient has any worsening GI symptoms please contact me. History of Present Illness Reason for Consultation: Pneumomediastinum Attending Physician: Marc Clark History of Present Illness 19 yo CF who presented to the ER yesterday with vomiting, abdominal pain and dehydration. She was noted to be in DKA in the ER. She underwent a CT abd/pelvis without contrast and was noted to have a small amount of pneumomedia stinum along the distal esophagus. She was admitted and treated with aggressive fluid hydration and insulin therapy. A repeat CT scan of the Abd/pelvis with PO contrast showed no evidence of extraluminal extravasation. She was noted to have elevations in her liver panel and repeat labs today showed an improvement but continued elevation of AST 195, ALT 164, and Alk Phos 150. At the time I saw her this evening she denied any fevers, chills, nausea, vomiting, abdominal pain or hematemesis. She states that she feels much better today, and denies any chest pain or SOB. She states that she does have GERD routinely, and does take Omeprazole at home. She has never had an EGD in the past. She admits that her diabetes is not well controlled at this time, but states she does not want an insulin pump. She denies any further complaints at this time. Allergies Allergy/AdvReac Type Severity Reaction Status Date / Time No Known Allergies Allergy Unverified 08/26/19 08:14 Home Medications Home Medications Medication Instructions Recorded Confirmed Type ibuprofen 200 mg PO Q6H PRN 08/26/19 08/26/19 History insulin aspart U-100 [Novolog 10 unit SUBCUT TID 08/26/19 08/26/19 History U-100 Insulin aspart] insulin glargine [Lantus U-100 25 unit SUBCUT PM 08/26/19 08/26/19 History Insulin] norethindrone-e.estradiol-iron 1 tab PO PM 08/26/19 08/26/19 History [June03/14 (28)] Patient History Family History Denies family history of Clotting disorder Myocardial infarction Stroke Social History Preferred Language: [place]an Communication Ability: Effective 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 Beliefs That Will Affect Care: None Current Living Situation: Parent Other Information That Helps Us Care for You: No Feels Safe at Home: Yes Safety Concerns: Feels Safe At This Time Smoking Status: Never smoker Hx Alcohol Use: No Hx Substance Use: No Review of Systems Constitutional: as per Subjective / HPI Eyes: as per Subjective / HPI Ear, Nose, Mouth, Throat: as per Subjective / HPI Respiratory: as per Subjective / HPI Cardiovascular: as per Subjective / HPI Gastrointestinal: as per Subjective / HPI Musculoskeletal: as per Subjective / HPI Integumentary: as per Subjective / HPI Neurologic: as per Subjective / HPI Psychiatric: as per Subjective / HPI Endocrine: as per Subjective / HPI Hematologic / Lymphatic: as per Subjective / HPI Allergy / Immunological: as per Subjective / HPI Physical Exam Constitutional: WD/WN, vitals as above Eyes: PERRL, conjunctivae normal, anicteric sclerae ENMT: external ear and nose normal, oropharynx normal Neck: trachea midline, no thyromegaly Respiratory: normal respiratory effort, lungs clear to auscultation Cardiovascular: RRR, no murmur, no edema Gastrointestinal (Abdomen): normal bowel sounds, soft, nontender, no hepatosplenomegaly Skin: no rashes, warm and dry Psychiatric: A+Ox3, euthymic affect Results & Data ([facility]) Vital Signs (Past 12 Hours) Vital Signs Temp Pulse Resp BP Pulse Ox 08/27/19 19:10 37.1 C 104 H 22 119/69 98 08/27/19 15:53 37.4 C 91 H 21 106/63 99 08/27/19 11:55 36.9 C 107 H 16 118/67 98 PG Care Time/CCT Total # of Minutes Spent Total Time Spent with Patient: Total time spent is greater than 50% in coordination of care (as documented) at patient's floor/unit and/or counseling patient: Coding Level of Care Code 67104 Inpt Consult Level 3 Diagnoses Diabetes type 1, controlled E10.9 DKA (diabetic ketoacidoses) E10.10 Diabetes mellitus complication detail: without coma Diabetes mellitus type: type 1 Pneumomediastinum J98.2 GERD (gastroesophageal reflux disease) K21.9 Esophagitis presence: esophagitis presence not specified Abnormal LFTs R94.5 (1) DKA (diabetic ketoacidoses) Diabetes mellitus complication detail: without coma Diabetes mellitus type: type 1 Qualified Code(s): E10.10 - Type 1 diabetes mellitus with ketoacidosis without coma (2) GERD (gastroesophageal reflux disease) Esophagitis presence: esophagitis presence not specified Qualified Code(s): K21.9 - Gastro-esophageal reflux disease without esophagitis
[2019-08-28] MEDS: ENOXAPARIN INJ 40 MG/0.4 ML SYR SQ SCH (07:30)
[2019-08-28] MEDS: POT PHOSPHATE MONOBASIC W/ SOD TAB PO SCH ×4 (07:30→21:39)
[2019-08-28] MEDS: PANTOprazole 40 MG TAB PO SCH (07:31)
[2019-08-28] MEDS: INSULIN ASPART 100 UNITS/ML 3 ML PEN SC SCH ×2 (07:55→11:54)
[2019-08-28 07:58] LABS: Alanine Aminotransferase 181 U/L (12-78); Albumin Level 3.4 gm/dl (3.4-5.0); Alkaline Phosphatase 161 U/L (45-117); Aspartate Aminotransferase 188 U/L (15-37); Bilirubin Direct < 0.1 mg/dl (0-0.2); Bilirubin,Total 0.6 mg/dl (0.2-1); Total Protein 7.1 gm/dl (6.4-8.2)
[2019-08-28 08:49] LABS: Hepatitis B Surface Antigen Neg (Neg)
[2019-08-28] MEDS ORDERED: POTASSIUM CHLORIDE 20 MEQ TABCR PO SCH (09:00)
[2019-08-28 09:13] LABS: BUN Creatinine Ratio 9.3 (10-20); Calcium 8.9 mg/dl (8.5-10.1); Creatinine Clr Calc Pharmacy 96.6 ml/min; Est GFR (African American) 111.1; Est GFR (Non-African American) 95.9; Potassium 4.1 mmol/L (3.5-5.1)
[2019-08-28 09:18] LABS: Hepatitis C IgG 13Yrs+Old_Rflx Neg (Neg)
[2019-08-28] MEDS: AMOXICILLIN 500 MG CAP PO SCH ×3 (09:51→21:38)
[2019-08-28] MEDS: INSULIN REGULAR 250 UNITS in SODIUM CHLORIDE 0.9% 247.5 ML IV SCH (10:07)
[2019-08-28] MEDS ORDERED: INSULIN GLARGINE SOLOSTAR 100 UNITS/ML 3 ML PEN SC ONE (10:15)
--- NOTE | 2019-08-28 13:27 | Gastroenterology Progress Note ---
Date of Service August 28, 2019 Assessment & Plan (1) Uncontrolled type 1 diabetes mellitus: (2) Pneumomediastinum: (3) Abnormal LFTs: Ordered a RUQ US for today Abstain from all alcohol as it is a known liver toxin Continue to maintain adequate blood glucose control I informed her that she will need to be seen by her PCP and Quickbooks Bookkeeper, and should be followed with blood work weekly until her liver panel normalizes. If she has continued elevation of her liver panel over an 8 week period, this would be considered chronic liver disease, and she should be followed by a drilling field specialist. No evidence of decompensation from pneumomediastinum, most likely secondary to forceful vomiting. Admission and Anticipated Discharge Date Admission Date: August 26, 2019 Subjective Feeling much better today. Tolerating PO intake. Denies any chest pain, SOB, fevers, chills, nausea, vomiting, hematemesis, dysphagia or odynophagia at present. She states that she has never been told that she has any liver abnormalities. She has no further complaints or questions. Review of Systems Review of Systems: All systems reviewed & are unremarkable except as noted in HPI & below Physical Exam Constitutional: WD/WN, vitals as above Eyes: PERRL, conjunctivae normal, anicteric sclerae ENMT: external ear and nose normal, oropharynx normal Neck: trachea midline, no thyromegaly Respiratory: normal respiratory effort, lungs clear to auscultation Cardiovascular: RRR, no murmur, no edema Gastrointestinal (Abdomen): normal bowel sounds, soft, nontender, no hepatosplenomegaly Skin: no rashes, warm and dry Psychiatric: A+Ox3, euthymic affect Results & Data Results & Data ([facility]) Vital Signs (Past 12 Hours) Vital Signs Temp Pulse Pulse Resp BP Pulse Ox 08/28/19 11:55 36.9 C 84 16 129/80 97 08/28/19 09:00 60 08/28/19 07:34 36.6 C 79 15 120/76 100 08/28/19 04:15 36.4 C L 87 20 136/81 98 PG Care Time/CCT Total # of Minutes Spent Total Time Spent with Patient: Total time spent is greater than 50% in coordination of care (as documented) at patient's floor/unit and/or counseling patient: Coding Level of Care Code 40484 Subseq Hosp Care Lvl 3 Diagnoses Uncontrolled type 1 diabetes mellitus E10.65 Glycemic state: with hyperglycemia Pneumomediastinum J98.2 Abnormal LFTs R94.5 (1) Uncontrolled type 1 diabetes mellitus Glycemic state: with hyperglycemia Qualified Code(s): E10.65 - Type 1 diabetes mellitus with hyperglycemia
--- NOTE | 2019-08-28 14:32 | Ultrasound Report ---
US liver HISTORY: 19 years-old Female Elevated liver panel COMPARISON: CT abdomen pelvis 08/26/2019 TECHNIQUE: Multiple real-time sonographic images of the abdominal right upper quadrant were obtained assessing grayscale appearance and color flow FINDINGS: Hepatomegaly with hepatic steatosis. No hepatic mass lesion, evidence of cirrhosis or ascites. The pa ncreas is better evaluated on comparison CT exam. No focal pancreatic abnormality identified. Contrac barbara gallbladder. No shadowing cholelithiasis. Common bile duct is normal, 3 mm. No intrahepatic bilia ry ductal dilation. The imaged right kidney is unremarkable without hydronephrosis. IMPRESSION: 1. Hepatomegaly with hepatic steatosis. 2. Contracted gallbladder. 3. No biliary ductal dilation. ACT 112: Negative or not required by law. The above report was generated using voice recognition software. It may contain grammatical, syntax o r spelling errors. Electronically signed by: Cuco Nava M.D. 08/28/2019 2:31 PM
[2019-08-28] MEDS ORDERED: INSULIN ASPART 100 UNITS/ML 3 ML PEN SC ONE (15:15)
--- NOTE | 2019-08-28 15:22 | Pharmacy Report ---
Pharmacy Glycemic Short Note 2 - Date of Service August 28, 2019 - Glycemic Short BSG Results (Last 24 hours): 08/27/19 08/27/19 08/27/19 15:04 15:47 16:42 Glucose 186 H POC Glucose 219 H 192 H 08/27/19 08/27/19 08/27/19 18:17 19:16 19:43 Glucose POC Glucose 147 H 117 H 112 H 08/27/19 08/27/19 08/27/19 20:15 20:45 21:18 Glucose POC Glucose 118 H 107 H 99 08/27/19 08/27/19 08/28/19 22:15 23:17 00:14 Glucose POC Glucose 147 H 170 H 193 H 08/28/19 08/28/19 08/28/19 01:13 02:13 03:15 Glucose POC Glucose 216 H 160 H 173 H 08/28/19 08/28/19 08/28/19 04:21 05:12 06:20 Glucose POC Glucose 185 H 232 H 244 H 08/28/19 08/28/19 08/28/19 07:01 07:19 09:09 Glucose 178 H POC Glucose 182 H 449 H* 08/28/19 08/28/19 08/28/19 10:04 11:02 11:43 Glucose POC Glucose 422 H* 374 H* 295 H 08/28/19 08/28/19 08/28/19 12:56 13:49 15:06 Glucose POC Glucose 215 H 206 H 210 H OUTPATIENT ANTIDIABETIC REGIMEN: * Lantus 25 units SC qpm * Novolog 10 units TIDM * A1c = 10.1 % (08/26/19) ASSESSMENT: * LUKAS is a 19 year old female with DKA * Labs much improved - anion gap: 11, serum bicarb: 20, pH: 7.42, BSGs most recently 206, 210 mg/dL (BSGs slightly above goal of less than 200 mg/dL for drip transition) * Hospitalist agreeable to drip transition today - gave 25 units of Lantus this morning at 1000 * Insulin drip to be turned off at 1630 - will give 3 units of Novolog (based on CF of 30) now to aid in transition with [facility] Novolog thereafter PLAN FOR INPATIENT GLYCEMIC CONTROL: * Basal insulin * Lantus 25 units x 1 today - will reassess basal in AM * Bolus insulin * NovoLog per scale ACHS or Q6hrs while NPO * Goal Range: Low 110 mg/dL - High 140 mg/dL * Correction Factor: 30 mg/dL/unit * Nutritional / Prandial insulin per carb ratio of 1 unit per 10 grams CHO consumed * Will add 0200 check with same parameters this evening PLAN FOR DISCHARGE: * TBD
[2019-08-28] MEDS ORDERED: INSULIN ASPART 100 UNITS/ML 3 ML PEN SC SCH (16:30)
--- NOTE | 2019-08-28 18:11 | Hospitalist Progress Note ---
Date of Service August 28, 2019 Assessment & Plan (1) DKA (diabetic ketoacidoses): resolved. trigger - food poisoning? GI illness? other infectious process? the day she fell ill her friend who had eaten same food had similar symptoms (nausea, emesis, etc). noncompliance was not the trigger - had been taking usual insulin regimen. transition off insulin infusion - pharmacy managing. appreciate their assistance. watch overnight on SC regimen. d/c home in am with her mother. (2) Uncontrolled type 1 diabetes mellitus: A1c 10.1%. DM and nutrition counseling. Poorly controlled T1DM -- cause of abnormal liver function tests (glycogen hepatopathy?). (3) KRYSTIN (acute kidney injury): 2nd to DKA - resolving. Cont supportive care. Serial BMPs. (4) Pneumomediastinum: Suspect due to vomiting/retching. Fortunately CT chest with PO contrast 08/26 did NOT show large esophageal tear/rupture but there could be a very tiny tear that simply cannot be seen. Either way is doing well with stable O2 sats, no chest symptoms, and tolerating diet. Appreciate Dr Canela's consultation. Cont PO protonix. If any fever spike this would be concerning for contamination from esophageal leak and would need emergent transfer to tertiary care center. Thus far no fever or other concerning symptoms. (5) Leukocytosis: resolved. reactive to DKA? viral? other? 08/26 wbc count was 11. (6) Abnormal LFTs: etiology?? acute liver injury in setting of DKA? acute hepA? COVID? other?? LFTs have improved but now plateaued. RUQ u/s with fatty liver findings. Hep B, hep C negative. Fatty liver vs glycogen hepatopathy?? This will need to be followed as outpatient. If LFTs remain elevated will need additional w/u. (7) GERD (gastroesophageal reflux disease): cont PPI (8) Hypomagnesemia: replaced resolved (9) Hypokalemia: replaced and resolved (10) Hypophosphatemia: replaced - repeat level am (11) Fatty liver: fatty liver vs glycogen hepatopathy due to uncontrolled T1DM?? will need f/u post-d/c (12) UTI (urinary tract infection): amox x 3 days (simple, uncomplicated UTI) (13) DVT prophylaxis: lovenox mother extensively updated d/c tele - move to med/surg hopefully home in am Admission and Anticipated Discharge Date Admission Date: August 26, 2019 Subjective telemetry normal overnight. patient without any complaints. eating well. no dyspnea or chest pain. no GI symptoms (abd pain/nausea/emesis). her mother arrived from [place] today. Review of Systems Constitutional: no fever Respiratory: no cough Cardiovascular: no chest pain Gastrointestinal: no abdominal pain, no nausea, no vomiting and no diarrhea/loose stools Physical Exam Constitutional: well developed and well nourished; no acute distress and no altered mental status ENMT: external ear and nose normal, oropharynx normal Respiratory: normal respiratory effort, lungs clear to auscultation Cardiovascular: Rate/Rhythm: regular rate and regular rhythm Heart Sounds: normal S1 and normal S2; no murmur Vessels: posterior tibial pulses present and dorsalis pedis pulses present; no JVD Extremities: no edema Gastrointestinal (Abdomen): normal bowel sounds, soft, nontender, no hepatosplenomegaly Skin: no rashes, warm and dry Psychiatric: A+Ox3, euthymic affect Results & Data Results & Data ([facility]) Vital Signs (Past 12 Hours) Vital Signs Temp Pulse Pulse Resp BP Pulse Ox 08/28/19 15:51 37.2 C 87 21 114/74 97 08/28/19 15:31 86 08/28/19 11:55 36.9 C 84 16 129/80 97 08/28/19 09:00 60 08/28/19 07:34 36.6 C 79 15 120/76 100 Laboratory Results Laboratory Results - last 24 hr 08/27/19 08/27/19 08/27/19 18:17 19:16 19:43 Sodium Potassium Chloride Carbon Dioxide Anion Gap BUN Creatinine Est Cr Clr Drug Dosing Est GFR ( Amer) Est GFR (Non-Af Amer) BUN/Creatinine Ratio Glucose POC Glucose 147 H 117 H 112 H Calcium Total Bilirubin Direct Bilirubin AST ALT Alkaline Phosphatase Total Protein Albumin Hepatitis A IgM Ab Hep Bs Antigen Hep B Core IgM Ab Hepatitis C Antibody SARS Serology 08/27/19 08/27/19 08/27/19 20:15 20:45 21:18 Sodium Potassium Chloride Carbon Dioxide Anion Gap BUN Creatinine Est Cr Clr Drug Dosing Est GFR ( Amer) Est GFR (Non-Af Amer) BUN/Creatinine Ratio Glucose POC Glucose 118 H 107 H 99 Calcium Total Bilirubin Direct Bilirubin AST ALT Alkaline Phosphatase Total Protein Albumin Hepatitis A IgM Ab Hep Bs Antigen Hep B Core IgM Ab Hepatitis C Antibody SARS Serology 08/27/19 08/27/19 08/28/19 22:15 23:17 00:14 Sodium Potassium Chloride Carbon Dioxide Anion Gap BUN Creatinine Est Cr Clr Drug Dosing Est GFR ( Amer) Est GFR (Non-Af Amer) BUN/Creatinine Ratio Glucose POC Glucose 147 H 170 H 193 H Calcium Total Bilirubin Direct Bilirubin AST ALT Alkaline Phosphatase Total Protein Albumin Hepatitis A IgM Ab Hep Bs Antigen Hep B Core IgM Ab Hepatitis C Antibody SARS Serology 08/28/19 08/28/19 08/28/19 01:13 02:13 03:15 Sodium Potassium Chloride Carbon Dioxide Anion Gap BUN Creatinine Est Cr Clr Drug Dosing Est GFR ( Amer) Est GFR (Non-Af Amer) BUN/Creatinine Ratio Glucose POC Glucose 216 H 160 H 173 H Calcium Total Bilirubin Direct Bilirubin AST ALT Alkaline Phosphatase Total Protein Albumin Hepatitis A IgM Ab Hep Bs Antigen Hep B Core IgM Ab Hepatitis C Antibody SARS Serology 08/28/19 08/28/19 08/28/19 04:21 05:12 06:20 Sodium Potassium Chloride Carbon Dioxide Anion Gap BUN Creatinine Est Cr Clr Drug Dosing Est GFR ( Amer) Est GFR (Non-Af Amer) BUN/Creatinine Ratio Glucose POC Glucose 185 H 232 H 244 H Calcium Total Bilirubin Direct Bilirubin AST ALT Alkaline Phosphatase Total Protein Albumin Hepatitis A IgM Ab Hep Bs Antigen Hep B Core IgM Ab Hepatitis C Antibody SARS Serology 08/28/19 08/28/19 08/28/19 07:01 07:01 07:01 Sodium Potassium Chloride Carbon Dioxide Anion Gap BUN Creatinine Est Cr Clr Drug Dosing Est GFR ( Amer) Est GFR (Non-Af Amer) BUN/Creatinine Ratio Glucose POC Glucose Calcium Total Bilirubin 0.6 Direct Bilirubin < 0.1 AST 188 H ALT 181 H Alkaline Phosphatase 161 H Total Protein 7.1 Albumin 3.4 Hepatitis A IgM Ab Hep Bs Antigen Neg Hep B Core IgM Ab Hepatitis C Antibody Neg SARS Serology Pending 08/28/19 08/28/19 08/28/19 07:01 07:01 07:19 Sodium 137 Potassium 4.1 Chloride 106 Carbon Dioxide 20 L Anion Gap 11.0 BUN 8 Creatinine 0.87 Est Cr Clr Drug Dosing 96.6 Est GFR ( Amer) 111.1 Est GFR (Non-Af Amer) 95.9 BUN/Creatinine Ratio 9.3 L Glucose 178 H POC Glucose 182 H Calcium 8.9 Total Bilirubin Direct Bilirubin AST ALT Alkaline Phosphatase Total Protein Albumin Hepatitis A IgM Ab Pending Hep Bs Antigen Hep B Core IgM Ab Pending Hepatitis C Antibody SARS Serology 08/28/19 08/28/19 08/28/19 09:09 10:04 11:02 Sodium Potassium Chloride Carbon Dioxide Anion Gap BUN Creatinine Est Cr Clr Drug Dosing Est GFR ( Amer) Est GFR (Non-Af Amer) BUN/Creatinine Ratio Glucose POC Glucose 449 H* 422 H* 374 H* Calcium Total Bilirubin Direct Bilirubin AST ALT Alkaline Phosphatase Total Protein Albumin Hepatitis A IgM Ab Hep Bs Antigen Hep B Core IgM Ab Hepatitis C Antibody SARS Serology 08/28/19 08/28/19 08/28/19 11:43 12:56 13:49 Sodium Potassium Chloride Carbon Dioxide Anion Gap BUN Creatinine Est Cr Clr Drug Dosing Est GFR ( Amer) Est GFR (Non-Af Amer) BUN/Creatinine Ratio Glucose POC Glucose 295 H 215 H 206 H Calcium Total Bilirubin Direct Bilirubin AST ALT Alkaline Phosphatase Total Protein Albumin Hepatitis A IgM Ab Hep Bs Antigen Hep B Core IgM Ab Hepatitis C Antibody SARS Serology 08/28/19 08/28/19 15:06 16:10 Sodium Potassium Chloride Carbon Dioxide Anion Gap BUN Creatinine Est Cr Clr Drug Dosing Est GFR ( Amer) Est GFR (Non-Af Amer) BUN/Creatinine Ratio Glucose POC Glucose 210 H 130 H Calcium Total Bilirubin Direct Bilirubin AST ALT Alkaline Phosphatase Total Protein Albumin Hepatitis A IgM Ab Hep Bs Antigen Hep B Core IgM Ab Hepatitis C Antibody SARS Serology Diagnostic Findings RUQ u/s - no gallstones; fatty liver; CBD wnl. Urine cx - 60,000 CFU of lactobacilli PG Care Time/CCT Total # of Minutes Spent Total Time Spent with Patient: Total time spent is greater than 50% in coordination of care (as documented) at patient's floor/unit and/or counseling patient: Coding Level of Care Code 05534 Subseq Hosp Care Lvl 3 Diagnoses DKA (diabetic ketoacidoses) E10.10 Diabetes mellitus complication detail: without coma Diabetes mellitus type: type 1 Uncontrolled type 1 diabetes mellitus E10.65 Glycemic state: with hyperglycemia KRYSTIN (acute kidney injury) N17.9 Pneumomediastinum J98.2 Leukocytosis D72.829 Leukocytosis type: unspecified Abnormal LFTs R94.5 GERD (gastroesophageal reflux disease) K21.9 Esophagitis presence: esophagitis presence not specified Hypomagnesemia E83.42 Hypokalemia E87.6 Hypophosphatemia E83.39 Fatty liver K76.0 UTI (urinary tract infection) N30.00 Urinary tract infection type: acute cystitis Hematuria presence: without hematuria DVT prophylaxis Z29.9 (1) DKA (diabetic ketoacidoses) Diabetes mellitus complication detail: without coma Diabetes mellitus type: type 1 Qualified Code(s): E10.10 - Type 1 diabetes mellitus with ketoacidosis without coma (2) Uncontrolled type 1 diabetes mellitus Glycemic state: with hyperglycemia Qualified Code(s): E10.65 - Type 1 diabetes mellitus with hyperglycemia (3) Leukocytosis Leukocytosis type: unspecified Qualified Code(s): D72.829 - Elevated white blood cell count, unspecified (4) GERD (gastroesophageal reflux disease) Esophagitis presence: esophagitis presence not specified Qualified Code(s): K21.9 - Gastro-esophageal reflux disease without esophagitis (5) UTI (urinary tract infection) Urinary tract infection type: acute cystitis Hematuria presence: without hematuria Qualified Code(s): N30.00 - Acute cystitis without hematuria
[2019-08-28] MEDS ORDERED: INSULIN ASPART 100 UNITS/ML VIAL SC SCH (21:00)
[2019-08-28] MEDS: INSULIN ASPART 100 UNITS/ML VIAL SC SCH (21:11)
[2019-08-28] MEDS: PATIENT'S OWN ORAL CONTRACEPTIVE PO SCH (21:39)
[2019-08-29] MEDS ORDERED: INSULIN ASPART 100 UNITS/ML 3 ML PEN SC SCH (02:00)
[2019-08-29] MEDS ORDERED: INSULIN ASPART 100 UNITS/ML VIAL SC SCH (02:00)
[2019-08-29 06:49] LABS: Alanine Aminotransferase 139 U/L (12-78); Albumin Level 2.9 gm/dl (3.4-5.0); Aspartate Aminotransferase 133 U/L (15-37); BUN Creatinine Ratio 16.1 (10-20); Bilirubin Direct < 0.1 mg/dl (0-0.2); Blood Urea Nitrogen 11 mg/dl (7-18); Calcium 8.6 mg/dl (8.5-10.1); Carbon Dioxide 24 mmol/L (21-32); Chloride 106 mmol/L (98-107); Creatinine Clr Calc Pharmacy 118.3 ml/min; Est GFR (African American) 142.1; Est GFR (Non-African American) 122.6; Glucose 123 mg/dl (70-99); Potassium 3.9 mmol/L (3.5-5.1); Sodium 141 mmol/L (136-145)
[2019-08-29 07:11] LABS: Alkaline Phosphatase 133 U/L (45-117); Bilirubin,Total 0.4 mg/dl (0.2-1); Phosphorus 4.7 mg/dl (2.5-4.9)
[2019-08-29] MEDS: ENOXAPARIN INJ 40 MG/0.4 ML SYR SQ SCH (08:07)
[2019-08-29] MEDS: AMOXICILLIN 500 MG CAP PO SCH (08:07)
[2019-08-29] MEDS: PANTOprazole 40 MG TAB PO SCH (08:07)
[2019-08-29] MEDS: INSULIN ASPART 100 UNITS/ML VIAL SC SCH (08:12)
[2019-08-29] MEDS ORDERED: INSULIN GLARGINE SOLOSTAR 100 UNITS/ML 3 ML PEN SC SCH (09:00)
--- NOTE | 2019-08-29 09:40 | Discharge Summary ---
Date of Service date of admission - August 26, 2019 date of discharge - August 29, 2019 Admission HPI Per Admitting Provider 19 y/o F c/o n/v. Pt states she was out in the sun all day yesterday, swimming, etc. She ended up sun burned and "dehydrated". She states that she felt fine otherwise. She is visiting her boyfriend and they are staying with another couple at [place]. She states that they all went to dinner last night. She ate the same thing as the other girlfriend. The other girl started to have n/v first, but then pt developed the same an hour or so later. The other girl stated that she felt like she had food poisoning and felt better shortly after, however pt continued to have n/v throughout the night into early this AM. She could not keep down any liquids, so she eventually came to the ED for concerns of dehydration. Pt is a DM-I. 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 Pt states she is having R sided "kidney" pain. She states she has hx of kidney stones and thought this might be similar. She has also had ruptured ovarian cysts, but those generally are painful for her in the anterior abd. She states she just had a ruptured cyst in the middle of July, after switching from Nexplanon to OCP due to not being able to have her Nexplanon switched due to COVID restrictions. She did not seek care for this most recent ruptured cyst because she has had them before and this felt the same. She states she still has some L sided lower back pain related to this. She has no increased pain to her back with urination. She had decreased urination yesterday, which she relates to "sun poisoning and being dehydrated". She feels increased pain with deep breaths, but is not short of breath. No chest pain. She states her ruptured cysts occurred prior with OCP use as well. Pt states she feels better s/p IVF and zofran. Still awaiting insulin drip in the ED. Principal Diagnosis Diabetic Ketoacidosis, Uncontrolled Type 1 Diabetes Mellitus Discharge Exam Constitutional well developed and well nourished; no acute distress and no altered mental status ENMT external ear and nose normal, oropharynx normal Respiratory normal respiratory effort, lungs clear to auscultation Cardiovascular Rate/Rhythm: regular rate and regular rhythm Heart Sounds: normal S1 and normal S2; no murmur Vessels: posterior tibial pulses present and dorsalis pedis pulses present; no JVD Extremities: no edema Gastrointestinal (Abdomen) normal bowel sounds, soft, nontender, no hepatosplenomegaly Skin no rashes, warm and dry Psychiatric A+Ox3, euthymic affect Discharge Data Allergies Allergy/AdvReac Type Severity Reaction Status Date / Time No Known Allergies Allergy Unverified 08/26/19 08:14 Consultations Gastroenterology - Gorge Case DO Ordered Studies CT abd pelvis IV con only - IMPRESSION: 1. Small amount of pneumomediastinum along the distal esophagus. No mediastinal fluid or pleural effusion. Statistically, this is due to alveolar rupture. However, a chest CT with oral contrast could be obtained to exclude the possibility of esophageal tear. 2. No acute findings within the abdomen or pelvis. 3. Moderate hepatomegaly and fatty infiltration of the liver. CT chest with oral contrast - IMPRESSION: Moderate pneumomediastinum. No oral contrast extravasation to s uggest esophageal tear. No pleural effusion. No mediastinal fluid or infiltration. US liver - IMPRESSION: 1. Hepatomegaly with hepatic steatosis. 2. Contracted gallbladder. 3. No biliary ductal dilation. Hospital Course (1) DKA (diabetic ketoacidoses): Resolved with traditional management including IV fluids and IV insulin. Patient reports this was her first episode of DKA since her diagnosis of T1DM at the age of 9. The pharmacy glycemic team managed much of her DKA including transition of insulin from IV to SC. Trigger of DKA - toxin-induced food poisoning (her friend had similar symptoms and they ate the same meal)? Viral gastroenteritis? other infectious process? The patient denies excessive alcohol use the day before falling ill. Noncompliance was not the trigger as she reports having taken her insulin regularly in the days leading up to the DKA. After transitioning back to SC basal-bolus regimen her control was excellent. At discharge the following was advised - * lantus 25 units qam * novolog - correction factor of 30, carb ratio 1:10 * follow-up with recruiter in [place] (2) Uncontrolled type 1 diabetes mellitus: A1c 10.1%. DM and nutrition counseling given. Poorly controlled T1DM -- cause of abnormal liver function tests (glycogen hepatopathy?). Follow-up with recruiter in [place]. (3) KRYSTIN (acute kidney injury): 2nd to DKA - resolved. Peak Cr 1.3, improving to 0.7 at discharge. (4) Pneumomediastinum: Suspect due to vomiting/retching. Fortunately CT chest with PO contrast did NOT show large esophageal tear/rupture but there could have been a very tiny tear that simply could not be seen radiographically. Either way did well with stable O2 sats, no chest symptoms, and tolerated diet. Was seen by Dr Gorge Canela from [facility]. Conservative measures including PPI were recommended. Started on omeprazole 40mg daily at discharge. The following were recommended at discharge - * Repeat chest x-ray in 7-10 days * NO HEAVY EXERTIONAL ACTIVITIES for 2 weeks (5) Leukocytosis: resolved. Peak WBC count was 28,000 and normalized without antibiotics. Suspect it was reactive to her DKA, the ?GI illness, and / or pneumomediastinum. (6) Abnormal LFTs: etiology?? acute liver injury in setting of DKA? recent COVID infection? chronically elevated? other?? LFTs did improve while hospitalized but did not normalize. RUQ u/s with fatty liver findings. HepA, HepB, HepC were all negative. Discharge values - * AST 133 * ALT 139 * Alk phos 133 Bilirubin level was normal the entire stay. Fatty liver vs glycogen hepatopathy?? This will need to be followed as outpatient. If LFTs remain elevated will need additional w/u. To rule out the possibility of a recent COVID infection a COVID IgG serum test was sent & was pending at discharge (patient declined COVID LANGUAGE INTERPRETER swab). (7) Fatty liver: fatty liver vs glycogen hepatopathy due to uncontrolled T1DM?? will need f/u post-d/c. (8) UTI (urinary tract infection): 2nd lactobacillus (simple, uncomplicated UTI) amoxicillin x 5 days (9) GERD (gastroesophageal reflux disease): cont PPI (10) Hypomagnesemia: replaced resolved (11) Hypokalemia: replaced and resolved (12) Hypophosphatemia: replaced and resolved Total Time Total Time Spent Total Time Spent (In Minutes): 45 Total Time Includes: Examination of the Patient, Discharge Planning, Medication Reconciliation and Communication With Other Providers Discharge Plan Discharge Items Patient Disposition: Home - Self-Care Reason For Visit: DKA Discharge Diagnosis: 1. DKA (diabetic ketoacidosis) - resolved 2. uncontrolled type 1 diabetes - hemoglobin a1c 10.1% 3. urinary tract infection - resolved 4. abnormal liver function tests - exact cause uncertain - follow-up needed 5. fatty liver vs glycogen hepatopathy (build-up of glycogen in the liver due to uncontrolled diabetes) - follow-up for #4 and #5 recommended with a liver specialist in [place] 6. possible food poisoning - resolved 7. reflux disease 8. pneumomediastinum - due to retching/vomiting Activity: Resume your previous activity Lifting Comment: no more than 15 pounds Exercise Comment: no exercise for 2 weeks; walks/light activity are fine Driving/Machine Use: No limitations Non-emergency contact: Primary Care Provider and Specialist Call non-emergency contact if: you have any medication questions, your symptoms worsen and you have a fever Follow-up/Referrals: Maximiliano Ruzi [Other] (see Dr Ruiz - endocrinology - in 1-2 weeks ) Diet: Carb Count or DM1 Addtl Attending Provider Instructions: You were admitted to [facility] for the problems listed above in "discharge diagnoses." You likely had some form of GI infection ("stomach bug") or food poisoning which then put you into DKA. Your DKA was treated with IV fluids and IV insulin. Your DKA resolved with these measures. Likely as a result of vomiting/retching you developed something called "pneumomediastinum." Free air entered a cavity in the center of your chest, likely from a microscopic tear in the lining of your esophagus. GI doctor saw you in consult and recommended ongoing surveillance/watching. I increased your prilosec to 40mg once daily. PLEASE AVOID HEAVY EXERTIONAL ACTIVITIES - HEAVY LIFTING OVER 15 POUNDS, GOING TO THE GYM, EXERCISING, WEIGHT LIFTING, YARD WORK, ETC FOR 2 WEEKS. AVOID EXCESSIVE COUGHING. AVOID VOMITING IF AT ALL POSSIBLE. YOU WILL NEED A REPEAT CHEST X-RAY IN 7-10 DAYS TO ENSURE THAT THE PNEUMOMEDIASTINUM IS RESOLVING/RESOLVED. Your liver function tests were elevated - exact cause uncertain - but they ARE IMPROVING nicely. You will need repeat liver tests in about 1 week to ensure they are improving. Please DO NOT DRINK ALCOHOL OR TAKE [id number] TYLENOL until you are cleared by your doctors to do so. For your diabetes please continue lantus 25 units daily. For your novolog please use a correction factor of 30 and a carbohydrate ratio of 1:10 (1 unit novolog for every 10 grams of carbs consumed). Lastly, you grew out bacteria in your urine, possibly representing a UTI. Please take amoxicillin 500mg three times daily for 2 days. Start this later today. Follow-up - see your recruiter within 1-2 weeks. Also recommend a consult with a liver specialist in [place] for the fatty liver vs glycogen hepatopathy vs other. See your family doctor within 1 week - you will need the chest x-ray at that time. Return to any hospital if - * you have fevers over 100.4 degrees * you have uncontrolled sugars and you have concerns you are in DKA * you have chest pain or shortness of breath * any other concerns COVID-19 prevention --- you are at high-risk of COVID-19 infection because of your diabetes. Please practice social distancing, wear a mask at all times when in public and at work, and avoid large gatherings with your friends. Pending Studies at Discharge: Yes Studies:: 1. Hepatitis A antibody 2. COVID-19 blood test (antibody test) Stand-Alone Forms: [facility] [email or web address], Work/School Release (Inpt), Smoking Cessation Medications and DC Order Prescriptions: New omeprazole 40 mg capsule,delayed release(DR/EC) 40 mg PO DAILY Qty: 30 RF: 2 ondansetron 4 mg tablet,disintegrating 4 mg PO Q6H PRN (Reason: nausea and vomiting) Qty: 10 RF: 0 Continued norethindrone-e.estradiol-iron [03/14 (28)] 1 mg-20 mcg (21)/75 mg (7) tablet 1 tab PO PM RF: 0 ibuprofen 200 mg Tablet 200 mg PO Q6H PRN (Reason: Pain) RF: 0 Changed Lantus U-100 Insulin 100 unit/mL solution 25 unit SUBCUT QAM Qty: 0 RF: 0 insulin aspart U-100 [Novolog U-100 Insulin aspart] 100 unit/mL solution See Rx Instructions .ROUTE .COMPLEX Qty: 10 RF: 0 Discharge Orders: Discharge Order (Routine); Ordered 08/29/19 Ordered By: Marc Dainels/Other Patient Handouts: Managing Type 1 Diabetes Admission Data Admit Date/Time: 08/26/19 11:02 Attending Provider: Marc Clark Admit Provider: Susan Moon Primary Care Provider: PCP,NO Other Providers: Susan Moon ; Gorge Canela Other Interventions: Discharge Summary Assessment (RN) Last Done: 08/29/19 09:42 DC Date/Time DO NOT enter until pt leaves facility: 08/29/19 10:02 Coding Level of Care Code D/C Day Management >30 mins Diagnoses DKA (diabetic ketoacidoses) E10.10 Diabetes mellitus complication detail: without coma Diabetes mellitus type: type 1 Uncontrolled type 1 diabetes mellitus E10.65 Glycemic state: with hyperglycemia KRYSTNI (acute kidney injury) N17.9 Pneumomediastinum J98.2 Leukocytosis D72.829 Leukocytosis type: unspecified Abnormal LFTs R94.5 Fatty liver K76.0 UTI (urinary tract infection) N30.00 Hematuria presence: without hematuria Urinary tract infection type: acute cystitis GERD (gastroesophageal reflux disease) K21.9 Esophagitis presence: esophagitis presence not specified Hypomagnesemia E83.42 Hypokalemia E87.6 Hypophosphatemia E83.39
[2019-08-30 11:23] LABS: Hepatitis A Antibody IgM NON-REACTIVE (NON-REACTIVE); Hepatitis B Core Antibody IgM NON-REACTIVE (NON-REACTIVE)
== END 2019-08-29 10:02 | disposition home or self-care (01) | DRG 638 ==
LOC: ED 07:42 → 2S 11:02 → SUATTDRO 11:02 → 2S 12:40 → 2W 08-28 15:25